=== PATIENT | female | born 1965 | race African-American/Black ===

== ENCOUNTER 2016-07-09 23:57 | Inpatient (IN) | payer MEDICAID ==
[~2016-07-09] VITALS: Ht 167.6 cm; Wt 74.5 kg
[~2016-07-09 23:57] MED LIST: ALDACTONE25 MG PO; ASPIRIN EC325 M1 PO; ASPIRIN325 MG PO; ASPIRIN81 MG PO; COREG 3.1253.125 MG PO; COREG6.25 MG; COZAAR25 MG PO; DEMADEX10 MG; FUROSEMIDE20 MG PO; FUROSEMIDE40 MG PO; K-TAB10 MEQ; K-TAB10 MEQ PO; LANOXIN125 MCG PO; LASIX20 MG PO; LASIX40 MG; LASIX40 MG PO; LISINOPRIL2.5 MG PO; LISINOPRIL5 MG PO; METOLAZONE2.5 MG PO; OXYCODONE HCL5 MG PO; PROAIR HFA8.5 GM; PROAIR HFA8.5 GM INH; PROTONIX40 MG PO; RESTORIL15 MG PO; ZANAFLEX4 MG PO
[2016-07-10 00:28] LABS: BASOPHILS 0.3 % (0.0-2.0); EOSINOPHILS 0.5 % (0-7); HEMATOCRIT 41.5 % (36.0-48.0); HEMOGLOBIN 13.7 g/dL (12-16); IMMATURE GRANULOCYTES 0.3 % (0-5); LYMPHOCYTES 29.9 % (15-50); MCH 30.4 pg (26.0-34.0); MCV 92.2 fL (80.0-100.0); MEAN PLATELET VOLUME 10.9 fL (7.4-10.4); MONOCYTES 4.7 % (2-11); NEUTROPHILS 64.3 % (40-80); PLATELET COUNT 209 10x3/uL (130-400); RDW 15.5 % (11.5-14.5); WBC 6.6 10x3/uL (4.8-10.8)
[2016-07-10 01:00] LABS: ALBUMIN 3.9 g/dL (3.4-5.0); ALKALINE PHOSPHATASE 100 U/L (46-116); ALT (SGPT) 26 U/L (10-68); BILIRUBIN - TOTAL 1.87 mg/dL (0.2-1.3); CALCIUM 9.4 mg/dL (8.5-10.1); CARBON DIOXIDE 25.8 mmol/L (21.0-32.0); CHLORIDE - SERUM 101 mmol/L (98-107); CHOL - HDL RATIO 3.6 ratio (2.3-4.1); CHOLESTEROL, TOTAL 120 mg/dL (0-200); CKMB 2.8 U/L (0.0-3.6); CREATINE KINASE 189 UL (21-215); DIGOXIN 1.11 ng/mL (0.90-2.00); HDL CHOLESTEROL 33 mg/dL (32-96); LDL CHOLESTEROL 80 mg/dL (0-100); LDL-HDL RATIO 2.4 ratio (1.5-3.5); POTASSIUM - SERUM 4.5 mmol/L (3.5-5.1); SODIUM 139 mmol/L (136-145); TRIGLYCERIDE 36 mg/dL (30-200); UREA NITROGEN 20 mg/dL (7-18)
[2016-07-10 01:01] LABS: CALC OSMOLALITY 283 mosm/kg (275-300); GLUCOSE 144 mg/dL (74-106); PRO BNP 1 pg/mL (0-125)
[2016-07-10 01:04] LABS: TROPONIN-I 1.132 ng/mL (0.000-0.060)
[2016-07-10 01:20] LABS: CREATININE - SERUM 1.5 mg/dL (0.6-1.3); PROTEIN - SERUM 8.2 g/dL (6.4-8.2); eGFR NON AFRICAN AMERICAN 39 mL/min (90-120)
[2016-07-10 03:59] VITALS: BP 128/88; Ht 167.6 cm; Wt 74.5 kg
[2016-07-10 04:28] LABS: CKMB 2.4 U/L (0.0-3.6); CREATINE KINASE 180 UL (21-215)
[2016-07-10 04:29] LABS: TROPONIN-I 1.033 ng/mL (0.000-0.060)
--- NOTE | 2016-07-10 07:30 | NUR ---
RECEIVED PT AAOX4 RESP UNLABORED DENIES ANY NEEDS OR DISCOMFORT AT THIS TIME NAD NOTED WILL CONT TO MONITOR
[2016-07-10 07:47] VITALS: BP 110/72
--- NOTE | 2016-07-10 09:25 | NUR ---
RATIONALE FOR SCD'S EXPLAINED. REFUSED SCD'S AT THIS TIME
[2016-07-10 09:45] LABS: CKMB 2.7 U/L (0.0-3.6); CREATINE KINASE 151 UL (21-215)
[2016-07-10 09:48] LABS: TROPONIN-I 1.158 ng/mL (0.000-0.060)
[2016-07-10 11:10] VITALS: BP 104/71
[2016-07-10] MEDS ORDERED: BENTYL 20 MG TA20 MG PO (15:24)
[2016-07-10 15:26] LABS: CKMB 2.2 U/L (0.0-3.6); CREATINE KINASE 179 UL (21-215)
[2016-07-10 15:30] LABS: TROPONIN-I 1.216 ng/mL (0.000-0.060)
[2016-07-10] MEDS ORDERED: BUMEX 1 MG TAB1 MG PO (15:32)
[2016-07-10] MEDS ORDERED: METOLAZONE5 MG (15:32)
[2016-07-10 16:27] VITALS: BP 101/56
--- NOTE | 2016-07-10 19:20 | NUR ---
INITIAL ROUNDS MADE. PT SITTING UP IN BED WATCHING TV. PT DENIES NEEDS OR C/O AT THIS TIME. CALL LIGHT IN REACH. WILL CONT TO MONITOR.
[2016-07-10 20:00] VITALS: BP 90/53
[2016-07-11] VITALS: BP 103/72
--- NOTE | 2016-07-11 00:30 | NUR ---
STAFF INTERNIST OFFICE BASED ONLY AT BEDSIDE FOR VS. NEEDS ADDRESSED. CALL LIGHT IN REACH. WILL CONT TO MONITOR.
--- NOTE | 2016-07-11 02:56 | NUR ---
SITTING UP IN BED WATCHING TV. NO NEEDS VOICED AT THIS TIME. C/O LEG CRAMPING REQUESTING ZANAFLEX AND NORCO SOON POSSIBLE.
[2016-07-11 04:00] VITALS: BP 120/73
[2016-07-11 05:46] LABS: BASOPHILS 0.4 % (0.0-2.0); EOSINOPHILS 0.7 % (0-7); HEMATOCRIT 45.7 % (36.0-48.0); HEMOGLOBIN 15.4 g/dL (12-16); IMMATURE GRANULOCYTES 0.3 % (0-5); LYMPHOCYTES 16.4 % (15-50); MCH 30.2 pg (26.0-34.0); MCHC 33.7 g/dL (31.0-37.0); MEAN PLATELET VOLUME 11.4 fL (7.4-10.4); MONOCYTES 9.6 % (2-11); NEUTROPHILS 72.6 % (40-80); PLATELET COUNT 215 10x3/uL (130-400); RDW 15.3 % (11.5-14.5); WBC 7.2 10x3/uL (4.8-10.8)
[2016-07-11 05:57] LABS: MCV 89.6 fL (80.0-100.0)
[2016-07-11 06:23] LABS: ALBUMIN 4.2 g/dL (3.4-5.0); ANION GAP 18.8 mmol/L (8-16); BILIRUBIN - TOTAL 1.95 mg/dL (0.2-1.3); CARBON DIOXIDE 28.3 mmol/L (21.0-32.0); POTASSIUM - SERUM 4.1 mmol/L (3.5-5.1); PROTEIN - SERUM 8.7 g/dL (6.4-8.2)
[2016-07-11 06:24] LABS: CREATININE - SERUM 1.1 mg/dL (0.6-1.3)
--- NOTE | 2016-07-11 07:22 | NUR ---
RECEIVED PT IN ROOM STANDING C/O GENERALIZED CRAMPING 02/27 NORCO 1 GIVEN PO FOR C/O CRAMPING WILL CONTINUE TO MONITOR PT REFUSING TO WEAR SCDs
[2016-07-11 07:32] VITALS: BP 83/48
--- NOTE | 2016-07-11 08:22 | NUR ---
DOBUTAMINE AND BUMEX DRIPS STOPPED AT THIS TIME PER AMBERLY HEMPHILL ORDER
--- NOTE | 2016-07-11 11:15 | NUR ---
Patient Name: GAURAV RAYA Admission Status: ER Accout number: [id number] Admission Date: 07-10-2016 : 1965 Admission Diagnosis:ACUTE ON CHRONIC SYSTOLIC (CONGESTIVE) HEART FAILURE Attending: VIVI Current LOS: 1 Anticipated DC Date: 07-11-2016 Planned Disposition: Home Health Service Primary Insurance: [employer]IONS KARL PLANNED EXTERNAL PROVIDER: [facility] Discharge Planning Comments: * Is the patient Alert and Oriented? Yes 0 * How many steps to enter\exit or inside your home? 5 0 * PCP DR. CHISHOLM 0 * Pharmacy [facility] 0 * Preadmission Environment Home with Family 0 * ADLs Independent 0 * Equipment None 0 * Other Equipment NO MEDICAL EQUIPMENT PROVIDER PREFERENCE 0 * List name and contact numbers for known caregivers / representatives who currently or will assist patient after discharge: ZAYDA LUCIA CARINA, 0 * Community resources currently utilized Home Health 0 * Please name any agencies selected above. [facility], 0 * Additional services required to return to the preadmission environment? No 0 * Can the patient safely return to the preadmission environment? Yes 0 * Has this patient been hospitalized within the prior 30 days at any hospital? No 0 CM MET WITH PT IN ROOM TO DISCUSS DISCHARGE PLANNING AND NEEDS. PT REPORTS LIVING AT HOME INDEPENDENTLY, PT'S ADULT DAUGHTER LIVES WITH HER. PT HAS NO MEDICAL EQUIPMENT. PT DID CALL HOME HEALTH AFTER HER LAST VISIT AND HAS BEEN RECEIVING HOME HEALTH PRIOR TO THIS ADMISSION WITH [facility]. CM DISCUSSED AVAILABILITY OF HOME HEALTH, REHAB SERVICES AND MEDICAL EQUIPMENT. PT DENIES REHAB AND MEDICAL EQUIPMENT NEEDS, BUT WOULD LIKE HOME HEALTH TO CONTINUE; PT REPORTS HER DAUGHTER WILL PICK HER UP FOR DISCHARGE HOME. IMPORTANT MESSAGE FROM MEDICARE PROVIDED AND EXPLAINED. CM CALLED [facility], , SPOKE TO YULIA WHO VERIFIED PT IS ACTIVE AND ON HOLD FOR HOME HEALTH SERVICES. FOR HOME HEALTH RESUMPTION AT HOSPITAL DISCHARGE, NOTIFY [facility] AT [phone]; FAX DISCHARGE INFORMATION TO [facility] AT [phone]. CM TO FOLLOW AND ASSIST NEEDED. Hydraulic Boom Operator: Alex Fernando
[2016-07-11 11:34] VITALS: BP 89/53
--- NOTE | 2016-07-11 13:04 | NUR ---
Patient Name: GAURAV RAYA Encounter No: [id number] : 1965 Primary Insurance: [employer] OPTIONS KARL Anticipated DC Date: 07-11-2016 Planned Disposition: Home Health Service External Planned Provider: [facility] DCP follow-up note: CM RECEIVED DISCHARGE ORDER, CALLED AND NOTIFYIED JAMES AT [facility] AT [phone]; FAXED DISCHARGE INFORMATION TO [facility] AT [phone]. Rope Tier: Alex Fernando
[2016-07-11 15:33] VITALS: BP 90/60
--- NOTE | 2016-07-11 17:00 | NUR ---
REVIEWED DISCHARGE INSTRUCTIONS PT STATES UNDERSTANDING COPY GIVEN DCD SALINE LOCK TO RAC WITH 20 GA IV CATH INTACT NO REDNESS OR EDEMA PT DISCHARGED HOME LEFT UNIT VIA W/C IN STABLE CONDITION WITH ALL PERSONAL BELONGINGS
--- NOTE | 2016-07-14 08:47 | DS ---
PATIENT:GAURAV HOWARD :63 MEDICAL RECORD: [id number] DISCHARGE SUMMARY ADMISSION DATE: 07/10/16 DISCHARGE DATE: 07/11/16 DISCHARGE DIAGNOSES: 1. Congestive heart failure, chronic systolic dysfunction. 2. Nonischemic cardiomyopathy. HOSPITAL COURSE: Mrs. Howard presents with heart failure symptomatology. She has a nonischemic cardiomyopathy, ejection fraction 10%. She did have an elevated troponin, but this is secondary to demand ischemia. No repeat cardiac catheterization was necessary. She was placed on Dobutrex as well as Bumex, both IV drips. She had greater than 4 liters output and her heart failure symptomatology cleared. She was discharged home to follow up with [facility] in 1 month. TRANSINT:[id number] Voice Confirmation ID: [id number] DOCUMENT ID: [id number] KARIS THOMAS MD at 0847 CC: [id number] DICTATION DATE: 07/11/16 0918 PIT CLERK: 07/12/16 0129 DIS IN 07/11/16 [id number] [place] [address]
== END 2016-07-11 17:00 | disposition home or self-care (01) | DRG 292 ==
LOC: D.ER 23:57 → D.M2 07-10 03:07 → OBSVTIME 07-10 03:28 → D.M2 07-10 10:08
PROVIDERS: Family Medicine; ADMIT Family Medicine
DX: I11.0 Hypertensive heart disease with heart failure (principal); N17.9 Acute kidney failure, unspecified; I24.8 Other forms of acute ischemic heart disease; I50.23 Acute on chronic systolic (congestive) heart failure; R79.89 Other specified abnormal findings of blood chemistry; Z95.810 Presence of automatic (implantable) cardiac defibrillator; I42.9 Cardiomyopathy, unspecified

== ENCOUNTER 2016-08-10 15:55 | Observation (INO) | payer MEDICAID ==
[~2016-08-10] VITALS: Ht 167.6 cm; Wt 80.6 kg
[~2016-08-10 15:55] MED LIST changes: +BENTYL 20 MG TA20 MG PO; +BUMEX 1 MG TAB1 MG PO; +METOLAZONE5 MG
[2016-08-10 17:26] LABS: BASOPHILS 0.1 % (0.0-2.0); EOSINOPHILS 0.6 % (0-7); HEMATOCRIT 39.3 % (36.0-48.0); IMMATURE GRANULOCYTES 0.1 % (0-5); MCH 30.4 pg (26.0-34.0); MCHC 33.1 g/dL (31.0-37.0); MEAN PLATELET VOLUME 11.1 fL (7.4-10.4); NEUTROPHILS 70.2 % (40-80); PLATELET COUNT 191 10x3/uL (130-400); RBC 4.27 10x6/uL (4.00-5.40); WBC 6.9 10x3/uL (4.8-10.8)
[2016-08-10 17:46] LABS: ALBUMIN 3.6 g/dL (3.4-5.0); ANION GAP 14.5 mmol/L (8-16); BILIRUBIN - TOTAL 2.36 mg/dL (0.2-1.3); CALCIUM 9.4 mg/dL (8.5-10.1); CARBON DIOXIDE 25.9 mmol/L (21.0-32.0); CREATININE - SERUM 1.2 mg/dL (0.6-1.3); POTASSIUM - SERUM 4.4 mmol/L (3.5-5.1); PROTEIN - SERUM 7.7 g/dL (6.4-8.2)
[2016-08-10 18:06] LABS: TROPONIN-I 1.465 ng/mL (0.000-0.060)
--- NOTE | 2016-08-10 20:12 | NUR ---
REPORT RECEIVED FROM HAO DEL ANGEL.
--- NOTE | 2016-08-10 21:09 | NUR ---
ARRIVED TO FLOOR VIA STRETCHER, ACCOMPANIED BY HOSPITAL STAFF. PLACED ON TELEMETRY 99PACED. ORIENTED TO UNIT, CALL LIGHT IN REACH. PLAN OF CARE DISCUSSED. WILL CONTINUE TO MONITOR. SEE NURSE ASSESSMENT.
--- NOTE | 2016-08-10 22:47 | NUR ---
ADITI ISRAEL PAGED ABOUT HOME MEDS, AWAITING CALL BACK.
[2016-08-11] VITALS: BP 100/64
--- NOTE | 2016-08-11 02:19 | NUR ---
LYING IN BED, CALL LIGHT IN REACH. WILL CONTINUE WITH PLAN OF CARE. [address]
[2016-08-11 04:00] VITALS: BP 113/70
[2016-08-11 08:04] VITALS: BP 99/73
--- NOTE | 2016-08-11 09:42 | NUR ---
TELEMETRY SR. IV PATENT. CALL LIGHT IN REACH. WILL CONT. PLAN OF CARE.
[2016-08-11 12:06] VITALS: Ht 167.6 cm; Wt 80.6 kg
[2016-08-11 13:01] VITALS: BP 111/78
[2016-08-11 16:32] VITALS: BP 104/80
--- NOTE | 2016-08-11 19:00 | NUR ---
RECEIVED REPORT AND ASSUMED PT CARE FROM DAY SHIFT NURSE @ THIS TIME.
[2016-08-11 21:18] VITALS: BP 130/85
[2016-08-12 00:23] VITALS: BP 89/55
[2016-08-12 04:25] VITALS: BP 98/65
[2016-08-12 05:49] LABS: BASOPHILS 0.3 % (0.0-2.0); EOSINOPHILS 1.4 % (0-7); HEMATOCRIT 40.8 % (36.0-48.0); HEMOGLOBIN 13.3 g/dL (12-16); IMMATURE GRANULOCYTES 0.2 % (0-5); LYMPHOCYTES 32.5 % (15-50); MCH 29.8 pg (26.0-34.0); MCHC 32.6 g/dL (31.0-37.0); MCV 91.5 fL (80.0-100.0); MEAN PLATELET VOLUME 11.1 fL (7.4-10.4); MONOCYTES 5.9 % (2-11); NEUTROPHILS 59.7 % (40-80); PLATELET COUNT 190 10x3/uL (130-400); RBC 4.46 10x6/uL (4.00-5.40); RDW 17.1 % (11.5-14.5); WBC 5.9 10x3/uL (4.8-10.8)
[2016-08-12 06:12] LABS: ALBUMIN 3.2 g/dL (3.4-5.0); ANION GAP 10.8 mmol/L (8-16); BILIRUBIN - TOTAL 1.88 mg/dL (0.2-1.3); CALCIUM 8.7 mg/dL (8.5-10.1); CARBON DIOXIDE 30.5 mmol/L (21.0-32.0); CREATININE - SERUM 1.2 mg/dL (0.6-1.3); POTASSIUM - SERUM 4.3 mmol/L (3.5-5.1); PROTEIN - SERUM 7.3 g/dL (6.4-8.2)
[2016-08-12 07:00] VITALS: BP 90/72
--- NOTE | 2016-08-12 07:30 | NUR ---
RECEIVED PT IN BED AAOX 4 RESP UNLABORED DENIES ANY NEEDS OR DISCOMFORT NAD NOTED
[2016-08-12 12:00] VITALS: BP 93/49
[2016-08-12 16:00] VITALS: BP 95/72
--- NOTE | 2016-08-12 19:15 | NUR ---
INITIAL ROUNDS MADE. PT SITTING UP IN BED WATCHING TV. DENIES NEEDS OR C/O AT THIS TIME. CALL LIGHT IN REACH.WILL CONT TO MONITOR.
[2016-08-12 20:47] VITALS: BP 104/76
--- NOTE | 2016-08-12 23:26 | NUR ---
BUSINESS SYSTEMS DEVELOPER AT BEDSIDE FOR VS. NEEDS ADDRESSED, CALL LIGHT IN REACH. WILL CONT TO MONITOR.
[2016-08-13 00:44] VITALS: BP 106/68
[2016-08-13 04:39] VITALS: BP 76/47
--- NOTE | 2016-08-13 05:16 | NUR ---
NO CHANGES IN ASSESSMENT. CALL LIGHT IN REACH. DENIES NEEDS. CONT TO MONITOR.
[2016-08-13 05:50] LABS: BASOPHILS 0.3 % (0.0-2.0); EOSINOPHILS 1.4 % (0-7); HEMATOCRIT 40.7 % (36.0-48.0); HEMOGLOBIN 13.3 g/dL (12-16); IMMATURE GRANULOCYTES 0.3 % (0-5); LYMPHOCYTES 25.5 % (15-50); MCH 30.2 pg (26.0-34.0); MCHC 32.7 g/dL (31.0-37.0); MCV 92.3 fL (80.0-100.0); MEAN PLATELET VOLUME 10.7 fL (7.4-10.4); MONOCYTES 6.5 % (2-11); PLATELET COUNT 203 10x3/uL (130-400); RBC 4.41 10x6/uL (4.00-5.40); RDW 16.9 % (11.5-14.5); WBC 6.9 10x3/uL (4.8-10.8)
[2016-08-13 06:15] LABS: ALBUMIN 3.2 g/dL (3.4-5.0); ANION GAP 11.9 mmol/L (8-16); BILIRUBIN - TOTAL 1.5 mg/dL (0.2-1.3); CALCIUM 8.9 mg/dL (8.5-10.1); CARBON DIOXIDE 29.6 mmol/L (21.0-32.0); CREATININE - SERUM 1.4 mg/dL (0.6-1.3); POTASSIUM - SERUM 4.5 mmol/L (3.5-5.1); PROTEIN - SERUM 7.5 g/dL (6.4-8.2)
--- NOTE | 2016-08-13 07:33 | NUR ---
ASSESSMENT COMPLETED.TELEMERTY SHOWS SR WITH A HEARTRATE OF 75. O2 AT 2 L/M PER NC. DENIES ANY NEEDS. SR UP WITH CALL LIGHT IN REAC. WILL MONITOR
--- NOTE | 2016-08-13 12:34 | NUR ---
EATING LUNCH DENIES ANY NEEDS OR DISCOMFORT AT THIS TIME
[2016-08-13 13:01] VITALS: BP 92/71
[2016-08-13 16:39] VITALS: BP 99/67
--- NOTE | 2016-08-13 17:52 | NUR ---
LYING QUIETLY WITH HOB UP. DENIES ANY NEEDS. TELEMERTY SHOWS SR. CALL LIGHT IN REACH
--- NOTE | 2016-08-13 19:39 | NUR ---
RESUMED CARE OF PT, LYING IN BED RESPIRATIONS EVEN AND UNLABORED ON ROOM AIR. 96 SR ON TELEMETRY. RIGHT AC SALINE LOCKED. REQUESTS PAIN MEDICATION FOR ABDOMINAL PAIN. CALL LIGHT IN REACH. WILL CONTINUE TO MONITOR. SEE NURSE ASSESSMENT.
[2016-08-13 20:00] VITALS: BP 116/76
[2016-08-14 04:00] VITALS: BP 114/71
[2016-08-14 05:42] LABS: BASOPHILS 0.1 % (0.0-2.0); EOSINOPHILS 0.4 % (0-7); HEMATOCRIT 39.8 % (36.0-48.0); HEMOGLOBIN 12.9 g/dL (12-16); IMMATURE GRANULOCYTES 0.1 % (0-5); LYMPHOCYTES 24.7 % (15-50); MCH 29.7 pg (26.0-34.0); MCHC 32.4 g/dL (31.0-37.0); MCV 91.5 fL (80.0-100.0); MEAN PLATELET VOLUME 10.7 fL (7.4-10.4); MONOCYTES 7.3 % (2-11); NEUTROPHILS 67.4 % (40-80); PLATELET COUNT 215 10x3/uL (130-400); RBC 4.35 10x6/uL (4.00-5.40); RDW 16.8 % (11.5-14.5); WBC 6.7 10x3/uL (4.8-10.8)
[2016-08-14 06:03] LABS: ALBUMIN 3.4 g/dL (3.4-5.0); ANION GAP 11.6 mmol/L (8-16); BILIRUBIN - TOTAL 2.3 mg/dL (0.2-1.3); CALCIUM 9.4 mg/dL (8.5-10.1); CARBON DIOXIDE 27.8 mmol/L (21.0-32.0); CREATININE - SERUM 1.2 mg/dL (0.6-1.3); POTASSIUM - SERUM 4.4 mmol/L (3.5-5.1); PROTEIN - SERUM 7.5 g/dL (6.4-8.2)
[2016-08-14 08:15] VITALS: BP 131/86
--- NOTE | 2016-08-14 09:41 | NUR ---
TELEMETRY SR. WILL MONITOR NEEDS.
[2016-08-14 11:36] VITALS: BP 114/81
[2016-08-14] MEDS ORDERED: Levaquin PO (13:08)
[2016-08-14] MEDS ORDERED: FLORAJEN3 CAPS460 MG PO (13:09)
[2016-08-14] MEDS ORDERED: MUCINEX600 MG PO (13:09)
[2016-08-14] MEDS ORDERED: LEVAQUIN500 MG PO (13:14)
[2016-08-14 15:32] VITALS: BP 106/76
--- NOTE | 2016-08-14 16:14 | NUR ---
IV AND TELEMETRY DCD. DC PLANS GIVEN. UNDERSTANDING VOICED. ESCORTED TO CAR BY W/C.
--- NOTE | 2016-08-16 08:43 | CN ---
PATIENT NAME:GAURAV RAYA MEDICAL RECORD: [id number] : [birth year] LOCATION:D.[place] D.2119 ADMIT DATE: 08/10/16 ACCOUNT: [id number] CONSULTING PHYSICIAN: RUBEN ROGER MD REFERRING PHYSICIAN: LIBBY MASCORRO MD DATE OF CONSULTATION: 08/11/2016 HISTORY OF PRESENT ILLNESS: A 51-year-old lady with a history of nonischemic cardiomyopathy. She has a history of ICD placement, chronic elevated troponin, admitted with generalized fatigue, cough, elevated troponin although this is chronic in nature. BNP is elevated above her usual. She had a normal coronary in the past. We are asked to see her concerning her cardiovascular status. PAST MEDICAL HISTORY: Includes: 1. History of cardiomyopathy. 2. Status post 3 lead ICD. ALLERGIES: PENICILLIN. MEDICATIONS: Typically include albuterol 2 puffs q.6, Bentyl 20 b.i.d., Zanaflex 4 mg t.i.d., digoxin 0.125 q. day, losartan 25 b.i.d., spironolactone 25 q. day, Bumex 1 mg p.o. q. day, Lasix 20 b.i.d., potassium supplementation, Protonix 40 q. day. SOCIAL HISTORY: She is a nonsmoker, nondrinker. She takes care of her ADLs. No set exercise program. REVIEW OF SYSTEMS: The patient reports easy bruising but reports no swollen glands. The patient reports no fever, no night sweats, no significant weight gain, no significant weight loss. No significant exercise tolerance. The patient reports no dry eyes, no irritation, no vision change. Patient reports no difficulty hearing and no ear pain. Patient reports no frequent nose bleeds or nose and sinus problems. Patient reports on arm pain on exertion. No shortness of breath while lying down. No history of heart murmur. Patient reports no cough, no wheezing or coughing up blood. Patient reports no abdominal pain, no vomiting. Normal appetite. No diarrhea and not vomiting blood. No nausea and no constipation. Patient reports no incontinence. No difficulty urinating. No hematuria. No increased frequency. Patient reports no muscle aches. No weakness, no arthralgias, no back pain. No swelling of the extremities. Patient reports no abnormal mole, no jaundice, no rashes. Reports no loss of consciousness. No weakness and no numbness. No seizures, dizziness, or headaches. The patient reports no depression, no sleep disturbance, feeling safe in a relationship and no alcohol abuse. Patient reports on fatigue. Reports no runny nose or sinus pressure. No itching, no hives, and no frequent sneezing. PHYSICAL EXAMINATION: GENERAL: Pleasant gentleman appears in no acute distress. VITAL SIGNS: Blood pressure 99/73, pulse is 92 and regular. HEENT: Normocephalic and atraumatic. NECK: No JVD or bruit. HEART: Regular. LUNGS: [place] are clear. ABDOMEN: Soft and nontender. Pulses 2+. There is no edema. CONSULT REPORT [id number] GAURAV RAYA DIAGNOSTIC DATA: ECG without acute change. IMPRESSION: Volume overload. I agree with current management. Reports occasional orthopnea it might benefit from overnight O2 saturations to see if she qualifies for home O2. Further recommendations based on above. TRANSINT:[id number] Voice Confirmation ID: [id number] DOCUMENT ID: [id number] RUBEN ROGER MD at 0843 CC: [id number] DICTATION DATE: 08/11/16 0836 ATHLETIC TURF WORKER: 08/11/16 1119 DIS IN 08/14/16 [facility] [address] [place] [address]
== END 2016-08-14 16:15 | disposition home or self-care (01) ==
LOC: D.ER 15:55 → D.M2 19:40 → OBSVTIME 19:40 → D.M2 08-14 16:15
PROVIDERS: Emergency Medicine; ADMIT Family Medicine
DX: J20.9 Acute bronchitis, unspecified (principal); I11.0 Hypertensive heart disease with heart failure; I50.33 Acute on chronic diastolic (congestive) heart failure; Z95.810 Presence of automatic (implantable) cardiac defibrillator; G35 Multiple sclerosis; I42.9 Cardiomyopathy, unspecified

== ENCOUNTER 2016-09-21 03:02 | Emergency (ER) | payer MEDICAID ==
[2016-08-11 12:06] VITALS: BMI 28.2
[~2016-09-21 03:02] MED LIST changes: +FLORAJEN3 CAPS460 MG PO; +LEVAQUIN500 MG PO; +Levaquin PO; +MUCINEX600 MG PO
== END 2016-09-21 03:33 | disposition home or self-care (01) ==
LOC: D.ER 03:02
DX: R60.0 Localized edema (principal); I50.9 Heart failure, unspecified; I10 Essential (primary) hypertension

== ENCOUNTER 2016-10-12 22:20 | Inpatient (IN) | payer MEDICAID ==
[~2016-10-12] VITALS: Ht 167.6 cm; Wt 79.0 kg
--- NOTE | 2016-10-12 22:29 | NUR ---
PT RECEIEVED TO ROOM 2126 VIA WHEELCHAIR ACCOMPANIED BY HOSPITAL STAFF AT THIS TIME.
[2016-10-12] MEDS ORDERED: ZANAFLEX2 M1 PO (22:51)
--- NOTE | 2016-10-12 23:15 | NUR ---
PT ARRIVES VIA TO ROOM 2126. DIRECT ADMISSION FROM DR MASCORRO'S OFFICE. WRITTEN ORDERS COME WITH PT AND ENTERED INTO CPOE. MEDICATIONS RECONCILED AT THE BEDSIDE. ADMISSION ASSESSMENT AND HISTORY COMPLETED. EKG DONE UPON ARRIVAL. LEFT FOREARM SITED WITH 20 GAUGE X 1 STICK AND SALINE LOCKED. PT DOES RELATE HAVING BEEN PUT ON A NEW "BLOOD PRESSURE PILL BY DR GIBBS". PT IS UNABLE TO REMEMBER THE NAME OF THE MEDICATION. STATES SHE HAS BEEN ITCHING AND HAVING A RASH ON HER ARMS AND CHEST. VSS, AFEBRILE. UNIT ROUTINES AND PROTOCOLS DISCUSSED WITH PT, VEERBALIZES UNDERSTANDING. CALL LIGHT PLACED WITHIN REACH. WILL CONT TO MONITOR.
[2016-10-12 23:38] VITALS: BP 114/80; Ht 167.6 cm; Wt 79.0 kg
--- NOTE | 2016-10-12 23:57 | NUR ---
ADMINISTERED LASIX IVP PER ORDERS AT THIS TIME. PT DENIES NEEDS. BED LOW. PHONE AND CALL LIGHT IN REACH. SRX2.
[2016-10-13] VITALS: BP 114/80
--- NOTE | 2016-10-13 | NUR ---
CALL TO [employer] ISRAEL [employer] FARM EQUIPMENT ASSEMBLER. PT HAS A COMPLAINT OF HEADACHE AND REQUESTS BENADRYL FOR ITCHING. AWAITING RETURN CALL
--- NOTE | 2016-10-13 00:15 | NUR ---
GEGE LI RETURNS CALL. ORDERS RECEIVED FOR TRAMADOL 50 MG PO Q6H PRN PAIN AND BENADRYL 25 MG PO Q4H PRN ITCHING. ALSO ORDERS TO CONSULT DR GIBBS IN AM FOR PT'S CHF. ORDERS ENTERED INTO CPOE.
--- NOTE | 2016-10-13 00:25 | NUR ---
TRAMADOL GIVEN PO AT THIS TIME FOR PAIN PT RATES 10/28. BENADRYL ALSO GIVEN AT THIS TIME FOR PT C/O ITCHING. DENIES NEEDS. BED LOW. PHONE AND CALL LIGHT IN REACH. SRX2.
[2016-10-13 02:24] LABS: CKMB 2.3 U/L (0.0-3.6); CREATINE KINASE 301 UL (21-215); DIGOXIN 0.72 ng/mL (0.90-2.00)
--- NOTE | 2016-10-13 02:46 | NUR ---
PT RESTING QUIETLY AT THIS TIME WITH EYES CLOSED. AROUSED EASILY. DENIES NEEDS. BED LOW. PHONE AND CALL LIGHT IN REACH. SRX2.
[2016-10-13 04:00] VITALS: BP 107/59
--- NOTE | 2016-10-13 04:22 | NUR ---
ADMINISTERED BENADRYL PO PER ORDERS FOR PT C/O ITCHING. PT REQUESTS ORANGE SHERBET AND CUP OF ICE AT THIS TIME. DENIES OTHER NEEDS. BED LOW. PHONE AND CALL LIGHT IN REACH. SRX2.
[2016-10-13 06:21] LABS: ALBUMIN 3.5 g/dL (3.4-5.0); ANION GAP 15.6 mmol/L (8-16); BILIRUBIN - TOTAL 2.1 mg/dL (0.2-1.3); CALCIUM 9.2 mg/dL (8.5-10.1); CARBON DIOXIDE 25.4 mmol/L (21.0-32.0); CREATININE - SERUM 1.2 mg/dL (0.6-1.3); PROTEIN - SERUM 8.1 g/dL (6.4-8.2)
[2016-10-13 06:24] LABS: HEMATOCRIT 41.6 % (36.0-48.0); HEMOGLOBIN 13.5 g/dL (12-16); LYMPHOCYTES 30.2 % (15-50); MCH 28.8 pg (26.0-34.0); MCHC 32.5 g/dL (31.0-37.0); MCV 88.7 fL (80.0-100.0); MEAN PLATELET VOLUME 10.8 fL (7.4-10.4); NEUTROPHILS 67.2 % (40-80); PLATELET COUNT 202 10x3/uL (130-400); RBC 4.69 10x6/uL (4.00-5.40); RDW 18.6 % (11.5-14.5); WBC 6.6 10x3/uL (4.8-10.8)
--- NOTE | 2016-10-13 07:30 | NUR ---
RECEIVED PT IN BED EYES CLOSED RESP UNLABORED NAD NOTED
[2016-10-13 07:53] LABS: CKMB 2.3 U/L (0.0-3.6); CREATINE KINASE 280 UL (21-215)
[2016-10-13 08:00] VITALS: BP 108/71
[2016-10-13 08:02] LABS: TROPONIN-I 1.523 ng/mL (0.000-0.060)
[2016-10-13 12:14] VITALS: BP 101/61
[2016-10-13 13:51] LABS: CKMB 1.7 U/L (0.0-3.6); CREATINE KINASE 227 UL (21-215)
[2016-10-13 15:43] VITALS: BP 97/69
[2016-10-14] VITALS: BP 88/60
--- NOTE | 2016-10-14 00:06 | NUR ---
1900 SHIFT ASSESSMENT COMPLETE WITH PAIN AND NEEDS DENIED TELEMETRY READING OF SINUS AT 69. IV SALINE LOCK TO THE L/ARM CDI NO BLEEDING NOTED. STRICT I&O IN PLACE WITH 700 CC URINE NOTED TO COLLECTION 2129 PO MEDICATION GIVEN ORAL WITH SIPS OF WATER.
--- NOTE | 2016-10-14 00:54 | NUR ---
SLEEPING QUIETLY WITH EYES CLOSED NO DISTRESS NOTED CALL LIGHT IN REACH
[2016-10-14 04:00] VITALS: BP 77/52
--- NOTE | 2016-10-14 07:57 | NUR ---
ASSESSMENT DONE. DENIES NEEDS.
--- NOTE | 2016-10-14 08:18 | NUR ---
RESTS IN BED WITH EYES COLSED. NO S/S DISCOMFORTS NOTED. CALL LIGHT IN REACH. WILL MONITOR NEEDS.
[2016-10-14 08:54] VITALS: BP 86/60
[2016-10-14 12:48] VITALS: BP 79/55
[2016-10-14] MEDS ORDERED: COZAAR50 MG PO (15:02)
--- NOTE | 2016-10-14 16:31 | NUR ---
DC GIVEN TO PT
--- NOTE | 2016-10-14 17:20 | NUR ---
DC HOME PER PERSONAL CAR
--- NOTE | 2016-10-16 09:15 | EC ---
PATIENT:GAURAV RAYA DATE OF SERVICE: 10/12/16 SEX: F MEDICAL RECORD: [id number] DATE OF : [birth year] LOCATION:D. D.212 AGE OF PATIENT: 51 ADMISSION DATE: 10/12/16 REFERRING PHYSICIAN: INTERPRETING PHYSICIAN: RUBEN ROGER MD ECHOCARDIOGRAM REPORT ECHO CHARGES 4 ECHO COMPLETE CLINICAL DIAGNOSIS: CARDIOMYOPATHY ECHOCARDIOGRAPHIC MEASUREMENTS (adult normal given) AC root (d.<3.7cm) 2.7 LV Septum d (<1.2 cm> 1.0 Valve Excursion 1.9 LV Septum (systole) 1.6 Left Atria (s.<4.0cm> 4.3 LVPW d(<1.2cm) 0.9 RV (d.<2.3cm) 4.4 LVPW (sytole) 1.3 LV diastole(<5.6CM) 7.4 MV E-F(>70mm/sec) LV systole 6.2 LVOT Diameter 1.7 MV exc.(>10mm) Est.ejection fraction (50-75%) Pericardial Effusion N DOPPLER: LVIT A 38.0 E 86.0 LA RVSP 39.0 LVOT 36.0 AOP1/2T Asc. Ao 81.0 RVOT 45.0 RA PA 46.0 AV Gradient Peak 2.6 AV Mean 1.4 AV Area 0.9 MV Gradient Peak 3.8 MV Mean 1.4 MV Area COMMENTS: Floor Care Technician: Lindsay LEWOE [employer] Internet Sales Consultant:2 Dr. Nelson TAPE# PACS DATE OF SERVICE: 10/15/2016 Adequate 2D echo, color flow, spectral Doppler, and M-mode. No LVH. LV internal dimensions are dilated at 6.2 cm. LV is globally hypokinetic with reduced EF, estimated EF of 15% to 20%. Aortic valve sclerosis without stenosis by Doppler interrogation. The left atrium is mildly dilated at 4.3 cm. Mitral valve is thickened. Moderate to severe MR. Right-sided chamber is grossly normal. Severe TR. RV systolic pressure is estimated greater than or equal to 39 mmHg via the continuity equation. ECHOCARDIOGRAM REPORT [id number] GAURAV RAYA LYDIA TRANSINT:[id number] Voice Confirmation ID: [id number] DOCUMENT ID: [id number] RUBEN ROGER MD at 0915 CC: [id number] DICTATION DATE: 10/15/16 0936 POWER PLANT MANAGER: 10/15/16 1301 DIS IN 10/14/16 [facility] [address] [place] [address]
== END 2016-10-14 17:20 | disposition home or self-care (01) | DRG 293 ==
LOC: D.M2 22:20
PROVIDERS: ADMIT Family Medicine
DX: I11.0 Hypertensive heart disease with heart failure (principal); I42.9 Cardiomyopathy, unspecified; I50.21 Acute systolic (congestive) heart failure; G35 Multiple sclerosis; Z95.0 Presence of cardiac pacemaker; K21.9 Gastro-esophageal reflux disease without esophagitis; L50.9 Urticaria, unspecified; L50.0 Allergic urticaria; T46.5X5A Adverse effect of other antihypertensive drugs, initial encounter

== ENCOUNTER 2016-10-28 01:28 | Inpatient (IN) | payer MEDICAID ==
[~2016-10-28] VITALS: Ht 166.4 cm; Wt 86.4 kg
[~2016-10-28 01:28] MED LIST changes: +COZAAR50 MG PO; +ZANAFLEX2 M1 PO
[2016-10-28 02:02] LABS: BASOPHILS 0.3 % (0-2); EOSINOPHILS 0.5 % (0-7); HEMATOCRIT 40.2 % (36.0-48.0); HEMOGLOBIN 12.9 g/dL (12-16); IMMATURE GRANULOCYTES 0.2 % (0-5); LYMPHOCYTES 20.6 % (15-50); MCH 28.4 pg (26.0-34.0); MCHC 32.1 g/dL (31.0-37.0); MCV 88.4 fL (80.0-100.0); MEAN PLATELET VOLUME 10.5 fL (7.4-10.4); MONOCYTES 7.8 % (2-11); NEUTROPHILS 70.6 % (40-80); PLATELET COUNT 231 10x3/uL (130-400); RBC 4.55 10x6/uL (4.00-5.40); RDW 18.1 % (11.5-14.5); WBC 5.9 10x3/uL (4.8-10.8)
[2016-10-28 02:13] LABS: ALBUMIN 3.6 g/dL (3.4-5.0); BILIRUBIN - TOTAL 2.91 mg/dL (0.2-1.3); CALCIUM 9.4 mg/dL (8.5-10.1); CARBON DIOXIDE 26.2 mmol/L (21.0-32.0); CREATININE - SERUM 1.4 mg/dL (0.6-1.3); POTASSIUM - SERUM 4.2 mmol/L (3.5-5.1)
[2016-10-28 02:15] LABS: DIGOXIN 0.6 ng/mL (0.90-2.00)
[2016-10-28 03:19] LABS: APPEARANCE CLOUDY (CLEAR); BILIRUBIN 1+ (NEGATIVE); COLOR DK YELLOW (YELLOW); GLUCOSE NEGATIVE (NEGATIVE); KETONE NEGATIVE (NEGATIVE); LEUKOCYTE ESTERASE TRACE (NEGATIVE); NITRITE NEGATIVE (NEGATIVE); PROTEIN 1+ mg/dL (NEGATIVE)
[2016-10-28 03:24] LABS: AMORPHOUS SEDIMENT >1+ /lpf (NONE SEEN); BACTERIA MODERATE /hpf (NONE SEEN); GRANULAR CAST OCC /lpf (NONE SEEN); HYALINE CAST OCC /lpf (NONE SEEN); WHITE CELLS - URINE 0-5 /hpf (0-5)
[2016-10-28] MEDS ORDERED: LIBRAX CAPSULE1 CAP PO (13:00)
[2016-10-28 13:01] VITALS: BP 117/78; Ht 166.4 cm; Wt 86.4 kg
--- NOTE | 2016-10-28 13:13 | NUR ---
PT ARRIVED VIA STRETCHER PT TRANSFERRED HERSELF ONTO BED IV TO RIGHT HAND PATENT AND INTACT. HEART RATE OF 98 BOUNDING AT THIS TIME. TELEMETRY AND EKG ORDERED. BED AT LOWEST SETTING CALL LIGHT WITHIN REACH WILL CONTINUE TO MONITOR SRX2
[2016-10-28 18:49] VITALS: BP 118/64
--- NOTE | 2016-10-28 19:30 | NUR ---
PT LYING IN BED AWAKE VISITING WITH SEVERAL FAMILY MEMBERS, HOB ELEVATED, ASSESSMENT COMPLETED, NO ACUTE DISTRESS NOTED, TELEMETRY IN PLACE, SR'S UP, CL IN REACH, WILL MONITOR
[2016-10-28 20:00] VITALS: BP 107/75
--- NOTE | 2016-10-28 20:38 | NUR ---
PRN ZANAFLEX GIVEN FOR C/O ABD MUSCLE SPASMS ALONG WITH ROUTINE MED, VERITO WELL, DENIES FURTHER NEEDS, FALL PRECAUTIONS IN PLACE, CL IN REACH
--- NOTE | 2016-10-28 21:58 | NUR ---
LYING IN BED WATCHING TV, DENIES NEEDS, SR'S UP, CL IN REACH
--- NOTE | 2016-10-28 23:42 | NUR ---
RESTING WITH EYES CLOSED, NO ACUTE DISTRESS NOTED, SAFETY MEASURES IN PLACE, CL IN REACH
[2016-10-29] VITALS: BP 97/60
[2016-10-29 04:00] VITALS: BP 96/62
[2016-10-29 05:30] LABS: BASOPHILS 0.2 % (0-2); EOSINOPHILS 0.2 % (0-7); HEMATOCRIT 37.8 % (36.0-48.0); HEMOGLOBIN 12.3 g/dL (12-16); IMMATURE GRANULOCYTES 0.5 % (0-5); LYMPHOCYTES 21.2 % (15-50); MCH 28.7 pg (26.0-34.0); MCHC 32.5 g/dL (31.0-37.0); MCV 88.1 fL (80.0-100.0); MEAN PLATELET VOLUME 11.1 fL (7.4-10.4); MONOCYTES 7.4 % (2-11); NEUTROPHILS 70.5 % (40-80); RBC 4.29 10x6/uL (4.00-5.40); RDW 18.1 % (11.5-14.5); WBC 5.8 10x3/uL (4.8-10.8)
[2016-10-29 05:31] LABS: PLATELET COUNT 179 10x3/uL (130-400)
[2016-10-29 05:37] LABS: ALBUMIN 3.2 g/dL (3.4-5.0); BILIRUBIN - TOTAL 3.47 mg/dL (0.2-1.3); CALCIUM 9.3 mg/dL (8.5-10.1); CARBON DIOXIDE 29.8 mmol/L (21.0-32.0); CREATININE - SERUM 1.5 mg/dL (0.6-1.3); PROTEIN - SERUM 7.2 g/dL (6.4-8.2)
[2016-10-29 05:40] LABS: ANION GAP 10.5 mmol/L (8-16); POTASSIUM - SERUM 5.3 mmol/L (3.5-5.1)
[2016-10-29 08:25] VITALS: BP 98/80
--- NOTE | 2016-10-29 10:05 | NUR ---
PATIENT IN LEFT LATERAL POSITION ALERT AND RESTING QUIETLY. NO SIGNS OF DISTRESS NOTED. PRIMARY NURSE ERIKA SANTO PRESENT. SIDE RAILS UP X2. BED IN LOW POSITION. CALL LIGHT IN REACH.
[2016-10-29 12:32] VITALS: BP 99/72
[2016-10-29 15:48] VITALS: BP 98/64
--- NOTE | 2016-10-29 19:36 | NUR ---
LYING IN BED VISITING WITH FAMILY, ASSESSMENT COMPLETED, NO ACUTE DISTRESS NOTED, DENIES PAIN OR NEEDS AT THIS TIME, SR'S UP, CL IN REACH, WILL MONITOR
[2016-10-29 20:00] VITALS: BP 102/72
--- NOTE | 2016-10-29 21:39 | NUR ---
WATCHING TV WITH VISITOR, NO DISTRESS NOTED, DENIES NEEDS, CL IN REACH
--- NOTE | 2016-10-29 23:30 | NUR ---
RESTING WITH EYES CLOSED, NO DISTRESS NOTED, SR'S UP X2, CL IN REACH
[2016-10-30] VITALS: BP 113/69
[2016-10-30 04:00] VITALS: BP 100/69
[2016-10-30 05:27] LABS: BASOPHILS 0.3 % (0-2); EOSINOPHILS 0.5 % (0-7); HEMATOCRIT 39.8 % (36.0-48.0); HEMOGLOBIN 12.9 g/dL (12-16); IMMATURE GRANULOCYTES 0.3 % (0-5); LYMPHOCYTES 18.9 % (15-50); MCH 28.7 pg (26.0-34.0); MCHC 32.4 g/dL (31.0-37.0); MCV 88.6 fL (80.0-100.0); MEAN PLATELET VOLUME 10.7 fL (7.4-10.4); MONOCYTES 5.6 % (2-11); NEUTROPHILS 74.4 % (40-80); RBC 4.49 10x6/uL (4.00-5.40)
[2016-10-30 05:49] LABS: ANION GAP 11.7 mmol/L (8-16); CARBON DIOXIDE 28.5 mmol/L (21.0-32.0); CREATININE - SERUM 1.3 mg/dL (0.6-1.3)
[2016-10-30 05:50] LABS: PLATELET COUNT 234 10x3/uL (130-400); WBC 7.5 10x3/uL (4.8-10.8)
[2016-10-30 05:54] LABS: POTASSIUM - SERUM 4.2 mmol/L (3.5-5.1)
[2016-10-30 07:50] VITALS: BP 118/71
--- NOTE | 2016-10-30 08:01 | NUR ---
AWAKE AND ALERT. ORIENTED X 3. NO C/O AT THIS TIME. LUNGS ARE CLEAR BILATERALLY BUT SLIGHTLY DIMINISHED. SKIN IS INTACT WITHOUT REDNESS BUT 2 PLUS EDEMA NOTED TO BILATERAL LOWER EXTREMETIES. PATIENT REPORTS THIS IMPROVED. WILL MONITOR. SL TO RIGHT HAND IS PATENT WITHOUT REDNESS AT INSERTION SITE. DENIES NEEDS.
--- NOTE | 2016-10-30 10:27 | NUR ---
ATE ALL OF BREAKFAST. DENIES NEEDS.
[2016-10-30] MEDS ORDERED: MIRALAX17 GM PO (11:20)
[2016-10-30 11:30] VITALS: BP 109/79
--- NOTE | 2016-10-30 12:21 | NUR ---
Patient Name: GAURAV RAYA Admission Status: ER Accout number: [id number] Admission Date: 10-29-2016 : 1965 Admission Diagnosis: Attending: BRENDA Current LOS: 1 Anticipated DC Date: Planned Disposition: Home or Self Care [facility] Discharge Planning Comments: CM met with patient to assess discharge planning needs. Patient lives at home with her children who are (9,11,18). She is independent and states her home is safe to return too. Her daughter Shilpa ([phone]) will be the one who is driving her home. Patient states that she uses a CPAP and has 5 steps to enter in her house & states she is steady on her feet. Patient is discharging today and denies any CM needs or HH set up. She Is being set up with [facility]. PCP: Tiffany Eubanks Pharmacy: [facility] [address] (daughter) [phone] Family Resource Management Professor: Tanesha Arias * Is the patient Alert and Oriented? Yes 0 * How many steps to enter\exit or inside your home? 5 0 * PCP ROSA 0 * Pharmacy [facility] [place] 0 * Preadmission Environment Home with Family 0 * ADLs Independent 0 * Equipment CPAP 0 * List name and contact numbers for known caregivers / representatives who currently or will assist patient after discharge: RANI PRIEST [phone] 0 * Community resources currently utilized None 0 * Additional services required to return to the preadmission environment? No 0 * Can the patient safely return to the preadmission environment? Yes 0 * Has this patient been hospitalized within the prior 30 days at any hospital? Yes 0 Grand Total: 0
--- NOTE | 2016-10-30 13:30 | NUR ---
DISCHARGED TO HOME WITH FAMILY AMBULATORY. DISCHARGE INSTRUCTIONS GIVEN BOTH VERBALLY AND WRITTEN. ALL QUESTIONS ANSWERED. PATIENT VERBALIZED UNDERSTANDING OF SAME. NEEDED MEDS ESCRIBED TO PHARMACY OF CHOICE.
[2016-10-31 10:19] LABS: ANA REFLEX - DIRECT Negative (Negative); HEPATITIS C ANTIBODY 0.2 (0.0-0.9)
[2016-11-01 14:25] LABS: MITOCHONDRIAL ANTIBODY 4.5 Units (0.0-20.0); SMOOTH MUSCLE ABS (ACTIN) 27 Units (0-19)
== END 2016-10-30 13:30 | disposition home or self-care (01) | DRG 388 ==
LOC: D.ER 01:28 → OBSVTIME 11:42 → D.MS 11:42
PROVIDERS: Emergency Medicine; Family Medicine; Internal Medicine Gastroenterology; ADMIT Family Medicine
DX: K56.0 Paralytic ileus (principal); I50.33 Acute on chronic diastolic (congestive) heart failure; N17.9 Acute kidney failure, unspecified; I11.0 Hypertensive heart disease with heart failure; Z95.810 Presence of automatic (implantable) cardiac defibrillator; E78.5 Hyperlipidemia, unspecified

== ENCOUNTER → 2016-11-07 08:07 | Outpatient (CLI) | payer MEDICAID ==
[~2016-11-07] VITALS: Ht 166.4 cm; Wt 87.8 kg
[~2016-11-07 08:07] MED LIST changes: +LIBRAX CAPSULE1 CAP PO; +MIRALAX17 GM PO
[2016-11-07 09:28] VITALS: BP 106/65; Ht 166.4 cm; Wt 87.8 kg
[2016-11-07 10:12] LABS: ALBUMIN 3.2 g/dL (3.4-5.0); ANION GAP 11.5 mmol/L (8-16); BILIRUBIN - TOTAL 2.58 mg/dL (0.2-1.3); CALCIUM 9.3 mg/dL (8.5-10.1); CARBON DIOXIDE 30.8 mmol/L (21.0-32.0); CREATININE - SERUM 1.2 mg/dL (0.6-1.3); POTASSIUM - SERUM 4.3 mmol/L (3.5-5.1); PROTEIN - SERUM 7.9 g/dL (6.4-8.2)
--- NOTE | 2016-11-07 11:29 | NUR ---
RECIEVED REPORT FROM KINA SANTOS WITH PATIENT ALERT AND ORIENTED. IV TO THE L/AC WITH DOBUTREX INFUSING AT 13.1 CC/HR AND BUMEX INFUSING AT 10 CC/HR. HR 102 101/77. 1200 CC URINE REMOVED FROM COLLECTION. WILL MONITOR
--- NOTE | 2016-11-07 11:54 | NUR ---
ANSWERED CALL TO ROOM WITH PATIENT UP TO BEDSIDE COMMODE. ASSIST PROVIED WITH 1400 CC CLEAR YELLOW URINE TO COLLECTION. VSS WITH CHEST PAIN DENIED WILL MONITOR
--- NOTE | 2016-11-07 12:32 | NUR ---
700 CC URINE EMPTIED WITH PATIENT VSS. NEEDS PROVIDED BUMEX CONTINUES AT 10 CC/HR AND DOBUTREX AT 13.1
--- NOTE | 2016-11-07 13:38 | NUR ---
PATIENT RESTING QUIELTY WITH EYES CLOSED VSS WITH NO DISTRESS NOTED. DOBUTREX CONTINUES TO INFUSE.
--- NOTE | 2016-11-07 14:03 | NUR ---
REPOSITIONED FOR COMFORT WITH VSS. PATINET DENIED PAIN OR NEEDS
--- NOTE | 2016-11-07 14:19 | NUR ---
1700 CC URINE EMPTIED FROM COLLECTION. PATIENT DENIED NEEDS
--- NOTE | 2016-11-07 15:05 | NUR ---
700 CC URINE TO COLLECTION WITH PATIENT CO OF SPASMS IN BACK AND REQUEST HOME MEDICATION OF ZANAFLEX. DR THOMAS NOTIFIED WITH ORDERS RECIEVED. 4 MG ZANAFLEX GIVEN PO X 1
--- NOTE | 2016-11-07 16:03 | NUR ---
PATIENT RESTING QUIETLY WITH EYES CLOSED NO DISTRESS NOTED. IV CONTINUES TO INFUSE
--- NOTE | 2016-11-07 16:48 | NUR ---
800 CC URINE EMPTIED FROM COLLECTION. PIV REMOVED WITH DRESSING APPLIED. PATIENT UP TO GET DRESSED FOR DISCHARGE HOME
--- NOTE | 2016-11-07 17:26 | NUR ---
VERBAL AND WRITTEN DISCHARGE GONE OVER WITH PATIENT. TRANSPORTED TO FRONT WAITING FOR DAUGHTER TO DRIVE HOME. NEEDS DENIED TOTAL OUTPUT OF 9650 DURING COURSE OF IV INFUSION. WITH DISCHARGE WEIGHT OF 179 LBS
== END | disposition home or self-care (01) ==
LOC: D.CATH 08:07
PROVIDERS: Internal Medicine Cardiovascular Disease
DX: I50.9 Heart failure, unspecified (principal); I42.9 Cardiomyopathy, unspecified

== ENCOUNTER → 2016-11-14 19:57 | Outpatient (CLI) | payer MEDICAID ==
[2016-11-07 09:28] VITALS: BMI 31.7
[2016-11-14 20:25] LABS: CALCIUM 9.8 mg/dL (8.5-10.1); CARBON DIOXIDE 28.8 mmol/L (21.0-32.0); CREATININE - SERUM 1.3 mg/dL (0.6-1.3); POTASSIUM - SERUM 4.8 mmol/L (3.5-5.1)
== END | disposition home or self-care (01) ==
LOC: D.LABREF 19:57
PROVIDERS: Nurse Practitioner
DX: I10 Essential (primary) hypertension (principal)

== ENCOUNTER 2016-11-16 13:14 | Emergency (ER) | payer MEDICAID ==
[2016-11-07 09:28] VITALS: BMI 31.7
[2016-11-16 14:16] LABS: BASOPHILS 0.3 % (0-2); EOSINOPHILS 0.5 % (0-7); HEMATOCRIT 38.6 % (36.0-48.0); HEMOGLOBIN 12.6 g/dL (12-16); IMMATURE GRANULOCYTES 0.5 % (0-5); LYMPHOCYTES 21.9 % (15-50); MCH 28.8 pg (26.0-34.0); MCHC 32.6 g/dL (31.0-37.0); MCV 88.1 fL (80.0-100.0); MONOCYTES 7.1 % (2-11); NEUTROPHILS 69.7 % (40-80); PLATELET COUNT 220 10x3/uL (130-400); RBC 4.38 10x6/uL (4.00-5.40); RDW 19.9 % (11.5-14.5); WBC 6.1 10x3/uL (4.8-10.8)
[2016-11-16 14:46] LABS: ALBUMIN 3.4 g/dL (3.4-5.0); ANION GAP 15.5 mmol/L (8-16); BILIRUBIN - TOTAL 2.88 mg/dL (0.2-1.3); CALCIUM 9.6 mg/dL (8.5-10.1); CARBON DIOXIDE 26.5 mmol/L (21.0-32.0); CREATININE - SERUM 1.1 mg/dL (0.6-1.3); PROTEIN - SERUM 7.7 g/dL (6.4-8.2)
[2016-11-16 14:48] LABS: DIGOXIN 0.67 ng/mL (0.90-2.00)
== END 2016-11-16 15:48 | disposition home or self-care (01) ==
LOC: D.ER 13:14
PROVIDERS: Emergency Medicine
DX: R60.9 Edema, unspecified (principal); R53.83 Other fatigue; I42.9 Cardiomyopathy, unspecified

== ENCOUNTER 2017-08-26 03:42 | Inpatient (IN) | payer MEDICAID ==
[~2017-08-26] VITALS: Ht 166.4 cm; Wt 81.5 kg
[2017-08-26 04:13] LABS: BASOPHILS 0.5 % (0-2); EOSINOPHILS 0.9 % (0-7); HEMATOCRIT 39.6 % (36.0-48.0); HEMOGLOBIN 13.4 g/dL (12-16); IMMATURE GRANULOCYTES 0.3 % (0-5); LYMPHOCYTES 30.6 % (15-50); MCH 32.7 pg (26.0-34.0); MCHC 33.8 g/dL (31.0-37.0); MCV 96.6 fL (80.0-100.0); MEAN PLATELET VOLUME 10.7 fL (7.4-10.4); MONOCYTES 6.9 % (2-11); NEUTROPHILS 60.8 % (40-80); PLATELET COUNT 210 10x3/uL (130-400); RDW 14.1 % (11.5-14.5); WBC 7.7 10x3/uL (4.8-10.8)
[2017-08-26 04:27] LABS: ALBUMIN 3.9 g/dL (3.4-5.0); ANION GAP 16.1 mmol/L (8-16); BILIRUBIN - TOTAL 0.92 mg/dL (0.2-1.3); CALCIUM 8.7 mg/dL (8.5-10.1); CARBON DIOXIDE 26.4 mmol/L (21.0-32.0); CREATININE - SERUM 1.7 mg/dL (0.6-1.3); POTASSIUM - SERUM 4.5 mmol/L (3.5-5.1)
[2017-08-26 04:44] LABS: TROPONIN-I 0.691 ng/mL (0.000-0.060)
[2017-08-26] MEDS ORDERED: BUMEX 1 MG TAB1 MG PO (06:03)
[2017-08-26] MEDS ORDERED: ENTRESTO 24 MG1 EACH PO (06:04)
[2017-08-26] MEDS ORDERED: COREG 3.1253.125 MG PO (06:05)
[2017-08-26 06:54] VITALS: Ht 166.4 cm; Wt 81.5 kg
[2017-08-26 07:57] VITALS: BP 94/37
[2017-08-26 11:23] VITALS: BP 107/62
[2017-08-26 15:36] VITALS: BP 125/66
[2017-08-26 21:12] VITALS: BP 109/69
[2017-08-27 01:18] VITALS: BP 112/64
[2017-08-27 05:50] VITALS: BP 107/62
[2017-08-27 06:15] LABS: BASOPHILS 0.5 % (0-2); EOSINOPHILS 0.6 % (0-7); HEMOGLOBIN 12.2 g/dL (12-16); IMMATURE GRANULOCYTES 0.2 % (0-5); LYMPHOCYTES 27.9 % (15-50); MCH 32.4 pg (26.0-34.0); MCHC 33.9 g/dL (31.0-37.0); MCV 95.5 fL (80.0-100.0); MEAN PLATELET VOLUME 11.3 fL (7.4-10.4); NEUTROPHILS 62.8 % (40-80); PLATELET COUNT 206 10x3/uL (130-400); RBC 3.77 10x6/uL (4.00-5.40); RDW 14.2 % (11.5-14.5); WBC 6.5 10x3/uL (4.8-10.8)
[2017-08-27 06:36] LABS: ALBUMIN 3.7 g/dL (3.4-5.0); ANION GAP 15.2 mmol/L (8-16); BILIRUBIN - TOTAL 1.07 mg/dL (0.2-1.3); CALCIUM 8.9 mg/dL (8.5-10.1); CARBON DIOXIDE 24.9 mmol/L (21.0-32.0); POTASSIUM - SERUM 4.1 mmol/L (3.5-5.1); PROTEIN - SERUM 7.5 g/dL (6.4-8.2)
[2017-08-27 06:42] LABS: CREATININE - SERUM 1.2 mg/dL (0.6-1.3)
[2017-08-27 07:40] VITALS: BP 102/57
[2017-08-27 10:44] VITALS: BP 105/61
[2017-08-27 14:57] VITALS: BP 100/68
[2017-08-27 19:00] VITALS: BP 111/75
[2017-08-28 04:00] VITALS: BP 104/69
[2017-08-28 05:55] LABS: BASOPHILS 0.1 % (0-2); EOSINOPHILS 0.1 % (0-7); HEMATOCRIT 37.4 % (36.0-48.0); HEMOGLOBIN 12.7 g/dL (12-16); IMMATURE GRANULOCYTES 0.1 % (0-5); LYMPHOCYTES 19.5 % (15-50); MCH 32.7 pg (26.0-34.0); MCV 96.4 fL (80.0-100.0); MEAN PLATELET VOLUME 11.8 fL (7.4-10.4); MONOCYTES 9.5 % (2-11); NEUTROPHILS 70.7 % (40-80); PLATELET COUNT 227 10x3/uL (130-400); RBC 3.88 10x6/uL (4.00-5.40); RDW 14.2 % (11.5-14.5); WBC 7.5 10x3/uL (4.8-10.8)
[2017-08-28 06:14] LABS: ALBUMIN 3.9 g/dL (3.4-5.0); BILIRUBIN - TOTAL 2.02 mg/dL (0.2-1.3); CALCIUM 9.1 mg/dL (8.5-10.1); CARBON DIOXIDE 25.6 mmol/L (21.0-32.0); CREATININE - SERUM 1.3 mg/dL (0.6-1.3)
[2017-08-28 06:18] LABS: ANION GAP 16.4 mmol/L (8-16)
[2017-08-28 08:04] VITALS: BP 108/72
== END 2017-08-28 12:39 | disposition home or self-care (01) | DRG 315 ==
LOC: D.ER 03:42 → D.EDHOLD 04:33 → D.M2 04:33
PROVIDERS: Emergency Medicine; Family Medicine
DX: I95.9 Hypotension, unspecified (principal); I42.9 Cardiomyopathy, unspecified; N17.9 Acute kidney failure, unspecified; I11.0 Hypertensive heart disease with heart failure; I50.9 Heart failure, unspecified; K21.9 Gastro-esophageal reflux disease without esophagitis; K59.00 Constipation, unspecified; I08.1 Rheumatic disorders of both mitral and tricuspid valves; Z95.0 Presence of cardiac pacemaker

== ENCOUNTER 2017-08-31 09:31 | Inpatient (IN) | payer MEDICAID ==
[~2017-08-31] VITALS: Ht 166.4 cm; Wt 79.5 kg
--- NOTE | ~2017-08-31 | HP ---
PATIENT: GAURAV HOWARD MEDICAL RECORD: [id number] ACCOUNT: [id number] LOCATION:[address] : 63 ADMISSION DATE: 09/01/17 HISTORY AND PHYSICAL EXAMINATION ADMITTING DIAGNOSES: 1. Congestive heart failure, chronic systolic dysfunction. 2. Nonischemic cardiomyopathy. HISTORY OF PRESENT ILLNESS: Ms. Howard presents with shortness of breath. Her PE protocol was negative for pulmonary embolus. She has a history of nonischemic cardiomyopathy. She has had troponin elevations in the past, but cardiac catheterization has been normal other than the severe cardiomyopathy, her ejection fraction is in the 15% to 20% range. Her shortness of breath and abdominal distension have been going on for the past week, she has ascites as well as pulmonary edema. REVIEW OF SYSTEMS: The patient reports easy bruising but reports no swollen glands. The patient reports no fever, no night sweats, no significant weight gain, no significant weight loss. No significant exercise tolerance. The patient reports no dry eyes, no irritation, no vision change. Patient reports no difficulty hearing and no ear pain. Patient reports no frequent nose bleeds or nose and sinus problems. Patient reports on arm pain on exertion. No shortness of breath while lying down. No history of heart murmur. Patient reports no cough, no wheezing or coughing up blood. Patient reports no abdominal pain, no vomiting. Normal appetite. No diarrhea and not vomiting blood. No nausea and no constipation. Patient reports no incontinence. No difficulty urinating. No hematuria. No increased frequency. Patient reports no muscle aches. No weakness, no arthralgias, no back pain. No swelling of the extremities. Patient reports no abnormal mole, no jaundice, no rashes. Reports no loss of consciousness. No weakness and no numbness. No seizures, dizziness, or headaches. The patient reports no depression, no sleep disturbance, feeling safe in a relationship and no alcohol abuse. Patient reports on fatigue. Reports no runny nose or sinus pressure. No itching, no hives, and no frequent sneezing. PHYSICAL EXAMINATION: GENERAL APPEARANCE: Well-nourished, well-developed, appears stated age. Level of distress, comfortable. PSYCHIATRIC: Mental status, alert, normal affect. Orientation, oriented to time, place and person. EYES: Lids and conjunctiva, noninjected. No discharge, no pallor. ENT: Lips, teeth, gums, normal dentition. Oropharynx, no cyanosis, no pallor. NECK: Carotid arteries, bilateral normal upstroke, no bruits, no thrills. JUGULAR VEINS: No jugular venous pressure or distention. CERVICAL LYMPH NODES: Nontender, nonenlarged. THYROID: Not enlarged. Nontender. No nodules. LUNGS: Respiratory effort, unlabored. CHEST: Normal curvature. No thoracic deformity. No chest wall tenderness. Percussion, resonant. Auscultation, clear. No wheezes, no rales, no rhonchi. CARDIOVASCULAR: Precordial exam, nondisplaced. No heaves or pericardial thrills. Rate and rhythm, regular. Heart sounds, normal S1, normal S2. No S3, no gallop, no rub. Systolic murmur, not heard. Diastolic murmur, not heard. EXTREMITIES: No cyanosis, no edema. Peripheral pulses, full and equal in all extremities, except as noted. No bruits appreciated. HISTORY AND PHYSICAL [id number] GAURAV HOWARD ABDOMEN: Soft, nondistended. Normal aorta. No bruit. Nontender. No masses. Liver, nontender, no hepatomegaly. Spleen, nontender, no splenomegaly. MUSCULOSKELETAL: No joint tenderness. No joint swelling. No erythema. NEUROLOGICAL: Normal gait, normal strength, normal tone. SKIN: Warm and dry. OVERALL IMPRESSION: Nonischemic cardiomyopathy. We will put her on dobutamine as well as IV Lasix and diurese her. This has worked in the past. Further care depends upon her response to diuresis. TRANSINT:[id number] Voice Confirmation ID: [id number] DOCUMENT ID: [id number] KARIS THOMAS MD at 1349 CC: [id number] DICTATION DATE: 08/31/17 1246 SUPERVISOR [employer]IGAR[employer] MAKING DEPARTMENT: 08/31/17 1322 ADM IN [id number] [place] [address]
--- NOTE | ~2017-08-31 | DS ---
PATIENT:GAURAV HOWARD :63 MEDICAL RECORD: [id number] DISCHARGE SUMMARY ADMISSION DATE: 09/01/17 DISCHARGE DATE: 09/02/17 DISCHARGE DIAGNOSES: 1. Nonischemic cardiomyopathy. 2. Congestive heart failure. HOSPITAL COURSE: Ms. Howard presents with decompensated congestive heart failure. She has a nonischemic cardiomyopathy, ejection fraction in the 15% to 20% range. She underwent diuresis with IV Lasix drip and dobutamine therapy. She had a good diuresis. Her symptomatology returned to baseline. Discharged home to follow up with [facility] in 1 month. She did have hypotension with the addition of the Coreg and the Coreg was discontinued. She was placed back on her digoxin that she was on previously. TRANSINT:[id number] Voice Confirmation ID: [id number] DOCUMENT ID: [id number] KARIS THOMAS MD at 0956 CC: [id number] DICTATION DATE: 09/02/17 1351 QUALITY PROJECT MANAGER: 09/03/17 0302 DIS IN 09/02/17 [id number] [place] [address]
[~2017-08-31 09:31] MED LIST changes: +ENTRESTO 24 MG1 EACH PO
[2017-08-31 10:17] LABS: BASOPHILS 0.2 % (0-2); EOSINOPHILS 0.5 % (0-7); HEMATOCRIT 37.7 % (36.0-48.0); HEMOGLOBIN 12.7 g/dL (12-16); IMMATURE GRANULOCYTES 0.6 % (0-5); LYMPHOCYTES 18.3 % (15-50); MCH 32.8 pg (26.0-34.0); MCHC 33.7 g/dL (31.0-37.0); MCV 97.4 fL (80.0-100.0); MEAN PLATELET VOLUME 11.7 fL (7.4-10.4); MONOCYTES 5.9 % (2-11); NEUTROPHILS 74.5 % (40-80); PLATELET COUNT 185 10x3/uL (130-400); RBC 3.87 10x6/uL (4.00-5.40); RDW 15.1 % (11.5-14.5); WBC 6.6 10x3/uL (4.8-10.8)
[2017-08-31 10:37] LABS: ALBUMIN 4.2 g/dL (3.4-5.0); ANION GAP 15.9 mmol/L (8-16); BILIRUBIN - TOTAL 1.61 mg/dL (0.2-1.3); CALCIUM 9.1 mg/dL (8.5-10.1); CARBON DIOXIDE 26.1 mmol/L (21.0-32.0); CREATININE - SERUM 1.7 mg/dL (0.6-1.3); PROTEIN - SERUM 8.4 g/dL (6.4-8.2)
[2017-08-31 10:57] LABS: TROPONIN-I 0.695 ng/mL (0.000-0.060)
[2017-08-31 11:02] LABS: APPEARANCE CLEAR (CLEAR); BILIRUBIN NEGATIVE (NEGATIVE); COLOR YELLOW (YELLOW); GLUCOSE 100 mg/dL (NEGATIVE); KETONE NEGATIVE (NEGATIVE); NITRITE NEGATIVE (NEGATIVE); PROTEIN NEGATIVE (NEGATIVE); SPECIFIC GRAVITY 1.015 (1.005-1.020)
[2017-08-31 11:03] LABS: BACTERIA FEW /hpf (NONE SEEN); EPITHELIAL CELLS 0-5 /hpf (0-5); HYALINE CAST 0-5 /lpf (NONE SEEN); MUCUS <1+ /lpf (NONE SEEN); RED CELLS - URINE RARE /hpf (0-5); UDS - AMPHET NEGATIVE QUAL (NEGATIVE); UDS - BARB NEGATIVE QUAL (NEGATIVE); UDS - BENZO NEGATIVE QUAL (NEGATIVE); UDS - COCAINE NEGATIVE QUAL (NEGATIVE); UDS - OPIATE NEGATIVE QUAL (NEGATIVE); UDS - PCP NEGATIVE QUAL (NEGATIVE); UDS - THC NEGATIVE QUAL (NEGATIVE)
[2017-09-01] VITALS (7 sets, daily range): BP systolic 88–121; BP diastolic 56–86; Ht 166.4 cm; Wt 79.5 kg
[2017-09-02 01:00] VITALS: BP 105/68
[2017-09-02 05:00] VITALS: BP 128/65
[2017-09-02 09:53] VITALS: BP 102/44
[2017-09-02 12:49] VITALS: BP 116/64
[2017-09-02 16:30] VITALS: BP 92/68
== END 2017-09-02 18:17 | disposition home or self-care (01) | DRG 292 ==
LOC: D.ER 09:31 → D.EDHOLD 13:04 → D.M2 13:04 → OBSVTIME 17:00 → D.M2 17:04
PROVIDERS: Family Medicine
DX: I50.23 Acute on chronic systolic (congestive) heart failure (principal); I42.9 Cardiomyopathy, unspecified; R18.8 Other ascites

== ENCOUNTER 2017-11-16 22:31 | Inpatient (IN) | payer MEDICAID ==
[~2017-11-16] VITALS: Ht 166.4 cm; Wt 73.4 kg
--- NOTE | ~2017-11-16 | HP ---
PATIENT: GAURAV HOWARD MEDICAL RECORD: [id number] ACCOUNT: [id number] LOCATION:[address] : 63 ADMISSION DATE: 11/17/17 HISTORY AND PHYSICAL EXAMINATION DIAGNOSES: 1. Nonischemic cardiomyopathy. 2. Congestive heart failure, chronic systolic dysfunction. 3. Abnormal ECG. 4. Shortness of breath, dyspnea on exertion. HISTORY OF PRESENT ILLNESS: Mrs. Howard presents with increasing shortness of breath, cough, dyspnea on exertion. Chest x-ray is compatible with mild congestive heart failure. She has a nonischemic cardiomyopathy, ejection fraction in the 10% to 15% range. She initially presented, she was hypertensive and tachycardic. She still is short of breath, but improved. REVIEW OF SYSTEMS: The patient reports easy bruising but reports no swollen glands. The patient reports no fever, no night sweats, no significant weight gain, no significant weight loss. No significant exercise tolerance. The patient reports no dry eyes, no irritation, no vision change. Patient reports no difficulty hearing and no ear pain. Patient reports no frequent nose bleeds or nose and sinus problems. Patient reports on arm pain on exertion. No shortness of breath while lying down. No history of heart murmur. Patient reports no cough, no wheezing or coughing up blood. Patient reports no abdominal pain, no vomiting. Normal appetite. No diarrhea and not vomiting blood. No nausea and no constipation. Patient reports no incontinence. No difficulty urinating. No hematuria. No increased frequency. Patient reports no muscle aches. No weakness, no arthralgias, no back pain. No swelling of the extremities. Patient reports no abnormal mole, no jaundice, no rashes. Reports no loss of consciousness. No weakness and no numbness. No seizures, dizziness, or headaches. The patient reports no depression, no sleep disturbance, feeling safe in a relationship and no alcohol abuse. Patient reports on fatigue. Reports no runny nose or sinus pressure. No itching, no hives, and no frequent sneezing. PHYSICAL EXAMINATION: GENERAL APPEARANCE: Well-nourished, well-developed, appears stated age. Level of distress, comfortable. PSYCHIATRIC: Mental status, alert, normal affect. Orientation, oriented to time, place and person. EYES: Lids and conjunctiva, noninjected. No discharge, no pallor. ENT: Lips, teeth, gums, normal dentition. Oropharynx, no cyanosis, no pallor. NECK: Carotid arteries, bilateral normal upstroke, no bruits, no thrills. JUGULAR VEINS: No jugular venous pressure or distention. CERVICAL LYMPH NODES: Nontender, nonenlarged. THYROID: Not enlarged. Nontender. No nodules. LUNGS: Respiratory effort, unlabored. CHEST: Normal curvature. No thoracic deformity. No chest wall tenderness. Percussion, resonant. Auscultation, clear. No wheezes, no rales, no rhonchi. CARDIOVASCULAR: Precordial exam, nondisplaced. No heaves or pericardial thrills. Rate and rhythm, regular. Heart sounds, normal S1, normal S2. No S3, no gallop, no rub. Systolic murmur, not heard. Diastolic murmur, not heard. EXTREMITIES: No cyanosis, no edema. Peripheral pulses, full and equal in all extremities, except as noted. No bruits appreciated. HISTORY AND PHYSICAL [id number] GAURAV HOWARD ABDOMEN: Soft, nondistended. Normal aorta. No bruit. Nontender. No masses. Liver, nontender, no hepatomegaly. Spleen, nontender, no splenomegaly. MUSCULOSKELETAL: No joint tenderness. No joint swelling. No erythema. NEUROLOGICAL: Normal gait, normal strength, normal tone. SKIN: Warm and dry. OVERALL IMPRESSION: Congestive heart failure, chronic systolic dysfunction from nonischemic cardiomyopathy. We will treat with IV Lasix. We will change her medications around. She is on digoxin, but she is not on Coreg or a beta aspen. We will add carvedilol to get better heart rate and blood pressure control. Further care depends upon the results with the diuresis and the medication changes. TRANSINT:[id number] Voice Confirmation ID: [id number] DOCUMENT ID: [id number] KARSI THOMAS MD at 1147 CC: [id number] DICTATION DATE: 11/17/17926 MANAGER PHYSICAL: 11/17/17 1057 ADM IN [facility] [address] [id number]
--- NOTE | ~2017-11-16 | DS ---
PATIENT:GAURAV HOWARD :63 MEDICAL RECORD: [id number] DISCHARGE SUMMARY ADMISSION DATE: 11/17/17 DISCHARGE DATE: DIAGNOSES: 1. Congestive heart failure, chronic systolic dysfunction. 2. Nonischemic cardiomyopathy. Ms. Howard presents with fluid overload, congestive heart failure symptomatology. Underwent IV diuresis, was discharged home with no change in her medications as she is already on Bumex at home. Follow up with [facility] in 1 month. TRANSINT:[id number] Voice Confirmation ID: [id number] DOCUMENT ID: [id number] KARIS THOMAS MD at 1741 CC: [id number] DICTATION DATE: 11/19/17 1149 BEREAVEMENT COUNSELOR: 11/19/17 2325 ADM IN [address] [address]
[2017-11-16 23:02] VITALS: BP 106/77
[2017-11-16 23:29] LABS: BASOPHILS 0.3 % (0-2); EOSINOPHILS 0.3 % (0-7); HEMATOCRIT 42.9 % (36.0-48.0); HEMOGLOBIN 14.3 g/dL (12-16); IMMATURE GRANULOCYTES 0.3 % (0-5); LYMPHOCYTES 22.8 % (15-50); MCH 30.6 pg (26.0-34.0); MCHC 33.3 g/dL (31.0-37.0); MCV 91.7 fL (80.0-100.0); MEAN PLATELET VOLUME 11.3 fL (7.4-10.4); MONOCYTES 6.8 % (2-11); NEUTROPHILS 69.5 % (40-80); PLATELET COUNT 173 10x3/uL (130-400); RBC 4.68 10x6/uL (4.00-5.40); RDW 16.3 % (11.5-14.5)
[2017-11-16 23:38] LABS: ALKALINE PHOSPHATASE 137 U/L (46-116); ALT (SGPT) 35 U/L (10-68); BILIRUBIN - TOTAL 1.89 mg/dL (0.2-1.3); CALC OSMOLALITY 276 mosm/kg (275-300); CALCIUM 9.8 mg/dL (8.5-10.1); CARBON DIOXIDE 28.2 mmol/L (21.0-32.0); CHLORIDE - SERUM 97 mmol/L (98-107); CREATININE - SERUM 1.7 mg/dL (0.6-1.3); POTASSIUM - SERUM 4.5 mmol/L (3.5-5.1); PROTEIN - SERUM 8.8 g/dL (6.4-8.2); SODIUM 136 mmol/L (136-145); UREA NITROGEN 24 mg/dL (7-18); eGFR NON AFRICAN AMERICAN 33 mL/min (90-120)
[2017-11-16 23:44] LABS: GLUCOSE 118 mg/dL (74-106)
[2017-11-16 23:54] LABS: AMYLASE - SERUM 130 U/L (25-115); CKMB 1.1 U/L (0.0-3.6); LIPASE 78 U/L (73-393); PRO BNP 6057 pg/mL (0-125)
[2017-11-16 23:55] LABS: TROPONIN-I 1.929 ng/mL (0.000-0.060)
[2017-11-17] VITALS (9 sets, daily range): BP systolic 97–132; BP diastolic 67–95; BMI 28.5
[2017-11-17] MEDS ORDERED: LANOXIN125 MCG PO (02:27)
[2017-11-17] MEDS ORDERED: PHENERGAN6.25 MG/5 PO (02:30)
[2017-11-17] MEDS ORDERED: TESSALON PERLE100 MG PO (02:32)
[2017-11-18 04:00] VITALS: BP 95/76
[2017-11-18 07:30] LABS: BASOPHILS 0.2 % (0-2); EOSINOPHILS 0.5 % (0-7); HEMATOCRIT 40.4 % (36.0-48.0); HEMOGLOBIN 13.5 g/dL (12-16); IMMATURE GRANULOCYTES 0.3 % (0-5); MCH 30.4 pg (26.0-34.0); MCHC 33.4 g/dL (31.0-37.0); MEAN PLATELET VOLUME 11.9 fL (7.4-10.4); MONOCYTES 10.8 % (2-11); NEUTROPHILS 66.2 % (40-80); PLATELET COUNT 156 10x3/uL (130-400); RBC 4.44 10x6/uL (4.00-5.40); RDW 16.3 % (11.5-14.5); WBC 5.9 10x3/uL (4.8-10.8)
[2017-11-18 07:52] LABS: ANION GAP 15.8 mmol/L (8-16); CALCIUM 9.6 mg/dL (8.5-10.1); CARBON DIOXIDE 24.9 mmol/L (21.0-32.0); CREATININE - SERUM 1.7 mg/dL (0.6-1.3); POTASSIUM - SERUM 4.7 mmol/L (3.5-5.1)
[2017-11-18 08:45] VITALS: BP 100/76
[2017-11-18 11:12] VITALS: BP 108/69
[2017-11-19] VITALS (7 sets, daily range): BP systolic 47–106; BP diastolic 21–78
[2017-11-19 21:54] LABS: ALBUMIN 3.5 g/dL (3.4-5.0); ANION GAP 22.9 mmol/L (8-16); BILIRUBIN - TOTAL 3.16 mg/dL (0.2-1.3); CALCIUM 9.8 mg/dL (8.5-10.1); CARBON DIOXIDE 20.4 mmol/L (21.0-32.0); PROTEIN - SERUM 7.9 g/dL (6.4-8.2)
[2017-11-19 22:00] LABS: CREATININE - SERUM 2.5 mg/dL (0.6-1.3)
[2017-11-19 22:02] LABS: POTASSIUM - SERUM 7.3 mmol/L (3.5-5.1)
[2017-11-19 22:38] LABS: CKMB 2.1 U/L (0.0-3.6); CREATINE KINASE 105 UL (21-215)
[2017-11-19 22:46] LABS: TROPONIN-I 2.398 ng/mL (0.000-0.060)
[2017-11-20] VITALS (52 sets, daily range): BP systolic 35–131; BP diastolic 9–100; BMI 26.8
[2017-11-20 00:07] LABS: ALBUMIN 3.3 g/dL (3.4-5.0); BILIRUBIN - TOTAL 3.54 mg/dL (0.2-1.3); CALCIUM 9.1 mg/dL (8.5-10.1); CREATININE - SERUM 2.4 mg/dL (0.6-1.3); PROTEIN - SERUM 7.4 g/dL (6.4-8.2)
[2017-11-20 00:09] LABS: ANION GAP 14.6 mmol/L (8-16); CARBON DIOXIDE 28.3 mmol/L (21.0-32.0); POTASSIUM - SERUM 4.9 mmol/L (3.5-5.1)
[2017-11-20 05:35] LABS: ALBUMIN 3.3 g/dL (3.4-5.0); ANION GAP 14.6 mmol/L (8-16); BILIRUBIN - TOTAL 3.85 mg/dL (0.2-1.3); CALCIUM 8.9 mg/dL (8.5-10.1); CARBON DIOXIDE 29.8 mmol/L (21.0-32.0); CREATININE - SERUM 2.6 mg/dL (0.6-1.3); POTASSIUM - SERUM 4.4 mmol/L (3.5-5.1); PROTEIN - SERUM 7.6 g/dL (6.4-8.2)
[2017-11-20 08:58] LABS: APPEARANCE CLOUDY (CLEAR); COLOR DY (YELLOW)
[2017-11-20 08:59] LABS: BILIRUBIN 2+ (NEGATIVE); GLUCOSE 100 mg/dL (NEGATIVE); KETONE NEGATIVE (NEGATIVE); NITRITE NEGATIVE (NEGATIVE); PROTEIN 2+ mg/dL (NEGATIVE); WHITE CELLS - URINE RARE /hpf (0-5)
[2017-11-20 09:01] LABS: EPITHELIAL CELLS 0-5 /hpf (0-5)
[2017-11-20 09:02] LABS: BACTERIA FEW /hpf (NONE SEEN)
[2017-11-20 09:03] LABS: AMORPHOUS SEDIMENT >1+ /lpf (NONE SEEN)
[2017-11-21] VITALS (62 sets, daily range): BP systolic 87–168; BP diastolic 46–100
[2017-11-21 04:43] LABS: BASOPHILS 0.1 % (0-2); EOSINOPHILS 0.3 % (0-7); HEMATOCRIT 42.1 % (36.0-48.0); HEMOGLOBIN 13.8 g/dL (12-16); IMMATURE GRANULOCYTES 0.5 % (0-5); LYMPHOCYTES 15.3 % (15-50); MCH 30.1 pg (26.0-34.0); MCHC 32.8 g/dL (31.0-37.0); MCV 91.9 fL (80.0-100.0); MEAN PLATELET VOLUME 11.7 fL (7.4-10.4); MONOCYTES 6.9 % (2-11); NEUTROPHILS 76.9 % (40-80); PLATELET COUNT 168 10x3/uL (130-400); RBC 4.58 10x6/uL (4.00-5.40); RDW 16.6 % (11.5-14.5); WBC 10.8 10x3/uL (4.8-10.8)
[2017-11-21 05:14] LABS: ALBUMIN 3.3 g/dL (3.4-5.0); ANION GAP 13.4 mmol/L (8-16); BILIRUBIN - TOTAL 3.14 mg/dL (0.2-1.3); CALCIUM 9.3 mg/dL (8.5-10.1); CARBON DIOXIDE 29.7 mmol/L (21.0-32.0); CREATININE - SERUM 2.8 mg/dL (0.6-1.3); POTASSIUM - SERUM 4.1 mmol/L (3.5-5.1); PROTEIN - SERUM 7.6 g/dL (6.4-8.2)
[2017-11-21 10:37] LABS: T4 THYROXIN - FREE 1.25 ng/dL (0.76-1.46); THYROID STIMULATING HORMONE 1.97 uIU/mL (0.36-3.74)
[2017-11-21 21:08] LABS: % SATURATION 6 % (15-55); IRON 26 ug/dl (35-150); TOTAL IRON BIND CAPACITY 393 ug/dl (260-445); UNSAT IRON BIND CAPACITY 367 ug/dl (150-375)
[2017-11-22] VITALS (26 sets, daily range): BP systolic 90–124; BP diastolic 44–86
[2017-11-22 06:34] LABS: BASOPHILS 0 % (0-2); EOSINOPHILS 0 % (0-7); HEMATOCRIT 39.2 % (36.0-48.0); HEMOGLOBIN 13.1 g/dL (12-16); IMMATURE GRANULOCYTES 0.3 % (0-5); LYMPHOCYTES 4.4 % (15-50); MCH 30.1 pg (26.0-34.0); MCHC 33.4 g/dL (31.0-37.0); MCV 90.1 fL (80.0-100.0); MEAN PLATELET VOLUME 11.8 fL (7.4-10.4); MONOCYTES 3.4 % (2-11); NEUTROPHILS 91.9 % (40-80); PLATELET COUNT 184 10x3/uL (130-400); RBC 4.35 10x6/uL (4.00-5.40); RDW 16.5 % (11.5-14.5); WBC 10.1 10x3/uL (4.8-10.8)
[2017-11-22 06:39] LABS: APTT 37.4 SECONDS (22.8-39.4); INR 2.01 (0.85-1.17); PROTIME 22.2 SECONDS (11.6-15.0)
[2017-11-22 06:54] LABS: ALBUMIN 2.6 g/dL (3.4-5.0); ANION GAP 8.5 mmol/L (8-16); BILIRUBIN - TOTAL 2.52 mg/dL (0.2-1.3); CALCIUM 8.9 mg/dL (8.5-10.1); CARBON DIOXIDE 32.1 mmol/L (21.0-32.0); CREATININE - SERUM 1.8 mg/dL (0.6-1.3); POTASSIUM - SERUM 3.6 mmol/L (3.5-5.1); PROTEIN - SERUM 6.7 g/dL (6.4-8.2)
[2017-11-22 07:03] LABS: CHOL - HDL RATIO 5.4 ratio (2.3-4.1); LDL-HDL RATIO 3.9 ratio (1.5-3.5); PRE-ALBUMIN 9.7 mg/dL (18.0-35.7)
[2017-11-23] VITALS (8 sets, daily range): BP systolic 98–110; BP diastolic 66–76
[2017-11-23 09:42] LABS: BASOPHILS 0 % (0-2); EOSINOPHILS 0 % (0-7); HEMATOCRIT 39.6 % (36.0-48.0); HEMOGLOBIN 13.2 g/dL (12-16); IMMATURE GRANULOCYTES 0.3 % (0-5); LYMPHOCYTES 4.2 % (15-50); MCHC 33.3 g/dL (31.0-37.0); MEAN PLATELET VOLUME 11.7 fL (7.4-10.4); MONOCYTES 4.1 % (2-11); NEUTROPHILS 91.4 % (40-80); PLATELET COUNT 202 10x3/uL (130-400); RDW 16.5 % (11.5-14.5); WBC 11.4 10x3/uL (4.8-10.8)
[2017-11-23 09:54] LABS: INR 1.47 (0.85-1.17); PROTIME 17.3 SECONDS (11.6-15.0)
[2017-11-23 10:05] LABS: ANION GAP 13.2 mmol/L (8-16); BILIRUBIN - TOTAL 2.28 mg/dL (0.2-1.3); CALCIUM 8.9 mg/dL (8.5-10.1); CARBON DIOXIDE 26.7 mmol/L (21.0-32.0); CREATININE - SERUM 1.6 mg/dL (0.6-1.3); POTASSIUM - SERUM 3.9 mmol/L (3.5-5.1); PROTEIN - SERUM 7.2 g/dL (6.4-8.2)
[2017-11-23 10:17] LABS: ANA REFLEX - DIRECT Negative (Negative)
[2017-11-23 11:17] LABS: C-PEPTIDE 8.1 ng/mL (1.1-4.4)
[2017-11-23 11:17] LABS: ALPHA FETOPROTEIN -(TUMOR MRK) 6.7 ng/mL (0.0-8.3)
[2017-11-23 13:15] LABS: HEPATITIS C ANTIBODY 0.3 (0.0-0.9)
[2017-11-23 15:21] LABS: EBV - EARLY ANTIGEN AB IGG <9.0 U/mL (0.0-8.9); EBV - NUCLEAR ANTIGEN AB IGG >600.0 U/mL (0.0-17.9); EBV VIRAL CAPSID AB IGG >600.0 U/mL (0.0-17.9); EBV VIRAL CAPSID AB IGM <36.0 U/mL (0.0-35.9)
[2017-11-23 17:12] LABS: HELICOBACTER PYLORI IGM AB 13.1 units (0.0-8.9)
[2017-11-24 04:00] VITALS: BP 96/67
[2017-11-24 05:35] LABS: BASOPHILS 0 % (0-2); EOSINOPHILS 0 % (0-7); HEMATOCRIT 40.3 % (36.0-48.0); HEMOGLOBIN 13.3 g/dL (12-16); IMMATURE GRANULOCYTES 0.3 % (0-5); LYMPHOCYTES 5.1 % (15-50); MCH 29.8 pg (26.0-34.0); MCV 90.2 fL (80.0-100.0); MEAN PLATELET VOLUME 11.6 fL (7.4-10.4); MONOCYTES 10.8 % (2-11); NEUTROPHILS 83.8 % (40-80); PLATELET COUNT 204 10x3/uL (130-400); RBC 4.47 10x6/uL (4.00-5.40); RDW 16.7 % (11.5-14.5); WBC 11.9 10x3/uL (4.8-10.8)
[2017-11-24 06:00] LABS: ALBUMIN 3.1 g/dL (3.4-5.0); BILIRUBIN - TOTAL 1.93 mg/dL (0.2-1.3); CALCIUM 9.4 mg/dL (8.5-10.1); CARBON DIOXIDE 27.1 mmol/L (21.0-32.0); PROTEIN - SERUM 7.5 g/dL (6.4-8.2)
[2017-11-24 06:02] LABS: ANION GAP 14.4 mmol/L (8-16); CREATININE - SERUM 2.2 mg/dL (0.6-1.3); POTASSIUM - SERUM 4.5 mmol/L (3.5-5.1)
[2017-11-24 07:45] VITALS: BP 97/70
[2017-11-24 11:42] VITALS: BP 132/80
[2017-11-24 15:46] VITALS: BP 113/89
[2017-11-24 21:40] VITALS: BP 97/74
[2017-11-25 03:06] LABS: INSULIN - TOTAL 52 uU/mL (())
[2017-11-25 05:42] LABS: BASOPHILS 0.1 % (0-2); EOSINOPHILS 0 % (0-7); HEMATOCRIT 40.9 % (36.0-48.0); HEMOGLOBIN 13.8 g/dL (12-16); IMMATURE GRANULOCYTES 0.3 % (0-5); LYMPHOCYTES 14.6 % (15-50); MCH 29.7 pg (26.0-34.0); MCHC 33.7 g/dL (31.0-37.0); MEAN PLATELET VOLUME 11.7 fL (7.4-10.4); MONOCYTES 4.7 % (2-11); NEUTROPHILS 80.3 % (40-80); PLATELET COUNT 198 10x3/uL (130-400); RBC 4.64 10x6/uL (4.00-5.40); RDW 16.6 % (11.5-14.5); WBC 9.5 10x3/uL (4.8-10.8)
[2017-11-25 05:43] LABS: MCV 88.1 fL (80.0-100.0)
[2017-11-25 06:14] VITALS: BP 115/78
[2017-11-25 06:33] VITALS: BP 101/82
[2017-11-25 07:40] VITALS: BP 118/89
[2017-11-25 10:07] LABS: SMOOTH MUSCLE ABS (ACTIN) 21 Units (0-19)
[2017-11-25 11:19] VITALS: BP 135/91
[2017-11-25 15:35] VITALS: BP 114/80
[2017-11-25 20:21] VITALS: BP 114/88
[2017-11-26 02:14] VITALS: BP 120/76
[2017-11-26 05:15] VITALS: BP 103/87
[2017-11-26 06:13] LABS: BASOPHILS 0 % (0-2); EOSINOPHILS 0 % (0-7); HEMATOCRIT 40.2 % (36.0-48.0); HEMOGLOBIN 13.7 g/dL (12-16); IMMATURE GRANULOCYTES 0.4 % (0-5); LYMPHOCYTES 8.6 % (15-50); MCH 29.9 pg (26.0-34.0); MCHC 34.1 g/dL (31.0-37.0); MCV 87.8 fL (80.0-100.0); MEAN PLATELET VOLUME 11.9 fL (7.4-10.4); MONOCYTES 9.4 % (2-11); NEUTROPHILS 81.6 % (40-80); PLATELET COUNT 208 10x3/uL (130-400); RBC 4.58 10x6/uL (4.00-5.40); RDW 16.7 % (11.5-14.5); WBC 10.2 10x3/uL (4.8-10.8)
[2017-11-26 07:26] LABS: ANION GAP 18.1 mmol/L (8-16); CREATININE - SERUM 3.2 mg/dL (0.6-1.3); POTASSIUM - SERUM 5.1 mmol/L (3.5-5.1)
[2017-11-26 08:34] VITALS: BP 127/93
[2017-11-26 11:53] LABS: ALBUMIN 3.5 g/dL (3.4-5.0); BILIRUBIN - DIRECT 1.32 mg/dL (0.00-0.30); BILIRUBIN - INDIRECT 0.63 mg/dL (0.00-1.00); BILIRUBIN - TOTAL 1.95 mg/dL (0.2-1.3)
[2017-11-26 12:24] VITALS: BP 110/85
[2017-11-26 16:34] VITALS: BP 113/91
[2017-11-27 00:02] VITALS: BP 123/85
[2017-11-27 06:02] VITALS: BP 131/95
[2017-11-27 07:41] LABS: ANION GAP 17.2 mmol/L (8-16); CALCIUM 9.4 mg/dL (8.5-10.1); CREATININE - SERUM 2.9 mg/dL (0.6-1.3)
[2017-11-27 07:42] LABS: POTASSIUM - SERUM 4.2 mmol/L (3.5-5.1)
[2017-11-27 08:22] LABS: BASOPHILS 0.1 % (0-2); EOSINOPHILS 0.1 % (0-7); HEMATOCRIT 40.2 % (36.0-48.0); HEMOGLOBIN 13.8 g/dL (12-16); IMMATURE GRANULOCYTES 0.9 % (0-5); LYMPHOCYTES 13.3 % (15-50); MCH 29.9 pg (26.0-34.0); MCHC 34.3 g/dL (31.0-37.0); MEAN PLATELET VOLUME 11.6 fL (7.4-10.4); MONOCYTES 3.6 % (2-11); PLATELET COUNT 222 10x3/uL (130-400); RBC 4.62 10x6/uL (4.00-5.40); RDW 16.9 % (11.5-14.5); WBC 10.4 10x3/uL (4.8-10.8)
[2017-11-27 08:47] VITALS: BP 112/81
[2017-11-27 09:55] VITALS: Ht 166.4 cm; Wt 73.4 kg
[2017-11-27 12:16] LABS: ALBUMIN 3.3 g/dL (3.4-5.0); BILIRUBIN - DIRECT 1.28 mg/dL (0.00-0.30); BILIRUBIN - INDIRECT 0.8 mg/dL (0.00-1.00); BILIRUBIN - TOTAL 2.08 mg/dL (0.2-1.3); PROTEIN - SERUM 7.8 g/dL (6.4-8.2)
[2017-11-27 12:38] VITALS: BP 120/91
[2017-11-27 16:27] VITALS: BP 101/75
[2017-11-27 22:07] VITALS: BP 90/55
[2017-11-28 01:57] VITALS: BP 104/82
[2017-11-28 04:45] LABS: BASOPHILS 0 % (0-2); EOSINOPHILS 0 % (0-7); HEMATOCRIT 38.7 % (36.0-48.0); HEMOGLOBIN 13.2 g/dL (12-16); LYMPHOCYTES 14.6 % (15-50); MCH 29.4 pg (26.0-34.0); MCHC 34.1 g/dL (31.0-37.0); MCV 86.2 fL (80.0-100.0); MEAN PLATELET VOLUME 11.2 fL (7.4-10.4); NEUTROPHILS 81.4 % (40-80); PLATELET COUNT 235 10x3/uL (130-400); RBC 4.49 10x6/uL (4.00-5.40); RDW 16.6 % (11.5-14.5); WBC 12.2 10x3/uL (4.8-10.8)
[2017-11-28 04:59] LABS: ALBUMIN 3.2 g/dL (3.4-5.0); BILIRUBIN - TOTAL 2.31 mg/dL (0.2-1.3); CALCIUM 8.7 mg/dL (8.5-10.1); CREATININE - SERUM 2.2 mg/dL (0.6-1.3); PROTEIN - SERUM 7.3 g/dL (6.4-8.2)
[2017-11-28 05:04] LABS: ANION GAP 10.2 mmol/L (8-16); CARBON DIOXIDE 36.3 mmol/L (21.0-32.0); POTASSIUM - SERUM 3.5 mmol/L (3.5-5.1)
[2017-11-28 05:16] LABS: INR 1.47 (0.85-1.17); PROTIME 17.3 SECONDS (11.6-15.0)
[2017-11-28 05:30] VITALS: BP 114/69
[2017-11-28 05:43] LABS: APPEARANCE HAZY (CLEAR); BILIRUBIN NEGATIVE (NEGATIVE); COLOR YELLOW (YELLOW); GLUCOSE NEGATIVE (NEGATIVE); KETONE NEGATIVE (NEGATIVE); NITRITE NEGATIVE (NEGATIVE); PROTEIN NEGATIVE (NEGATIVE); UROBILINOGEN NORMAL (NORMAL)
[2017-11-28 05:46] LABS: BACTERIA MANY /hpf (NONE SEEN); EPITHELIAL CELLS 0-5 /hpf (0-5); RED CELLS - URINE 0-5 /hpf (0-5)
[2017-11-28 05:47] LABS: ERYTHROCYTE SEDIMENTATION RATE 2 mm/hr (0-30)
[2017-11-28 07:54] VITALS: BP 114/74
[2017-11-28 11:29] VITALS: BP 128/77
[2017-11-28 15:34] VITALS: BP 123/63
[2017-11-28 17:16] LABS: CREATININE - URINE 15.1 mg/dL (30-125); PROTEIN - URINE 7.1 mg/dL (0.0-11.9)
[2017-11-28 19:44] VITALS: BP 116/66
[2017-11-29 01:25] VITALS: BP 113/69
[2017-11-29 05:58] VITALS: BP 110/38
[2017-11-29 07:07] LABS: BASOPHILS 0 % (0-2); EOSINOPHILS 0 % (0-7); HEMATOCRIT 43.3 % (36.0-48.0); HEMOGLOBIN 14.8 g/dL (12-16); IMMATURE GRANULOCYTES 0.9 % (0-5); LYMPHOCYTES 12.1 % (15-50); MCH 30.1 pg (26.0-34.0); MCHC 34.2 g/dL (31.0-37.0); MEAN PLATELET VOLUME 11.3 fL (7.4-10.4); MONOCYTES 2.6 % (2-11); NEUTROPHILS 84.4 % (40-80); PLATELET COUNT 276 10x3/uL (130-400); RBC 4.92 10x6/uL (4.00-5.40); RDW 16.8 % (11.5-14.5); WBC 11.8 10x3/uL (4.8-10.8)
[2017-11-29 07:39] LABS: ALBUMIN 3.6 g/dL (3.4-5.0); ANION GAP 6.9 mmol/L (8-16); BILIRUBIN - TOTAL 2.53 mg/dL (0.2-1.3); CALCIUM 8.8 mg/dL (8.5-10.1); POTASSIUM - SERUM 3.2 mmol/L (3.5-5.1); PROTEIN - SERUM 8.4 g/dL (6.4-8.2)
[2017-11-29 07:47] LABS: CREATININE - SERUM 1.4 mg/dL (0.6-1.3)
[2017-11-29 07:51] LABS: CARBON DIOXIDE 43.3 mmol/L (21.0-32.0)
[2017-11-29 09:31] VITALS: BP 122/85
[2017-11-29 13:41] VITALS: BP 100/61
[2017-11-29 16:15] LABS: SPE - A/G RATIO 0.9 (0.7-1.7); SPE - ALBUMIN 3.2 g/dL (2.9-4.4); SPE - ALPHA-1 GLOBULIN 0.3 g/dL (0.0-0.4); SPE - ALPHA-2 GLOBULIN 0.6 g/dL (0.4-1.0); SPE - BETA GLOBULIN 1.1 g/dL (0.7-1.3); SPE - GAMMA GLOBULIN 1.7 g/dL (0.4-1.8); SPE - M-SPIKE Not Observed g/dL (Not Observed); SPE - TOTAL PROTEIN 6.8 g/dL (6.0-8.5)
[2017-11-29 17:08] VITALS: BP 103/70
[2017-11-29 21:09] VITALS: BP 122/75
[2017-11-30 00:37] VITALS: BP 111/70
[2017-11-30 05:20] LABS: BASOPHILS 0.1 % (0-2); EOSINOPHILS 0 % (0-7); HEMATOCRIT 42.1 % (36.0-48.0); HEMOGLOBIN 14.1 g/dL (12-16); IMMATURE GRANULOCYTES 0.8 % (0-5); LYMPHOCYTES 13.7 % (15-50); MCH 29.4 pg (26.0-34.0); MCHC 33.5 g/dL (31.0-37.0); MCV 87.7 fL (80.0-100.0); MEAN PLATELET VOLUME 11.1 fL (7.4-10.4); MONOCYTES 3.6 % (2-11); NEUTROPHILS 81.8 % (40-80); PLATELET COUNT 258 10x3/uL (130-400); RDW 16.7 % (11.5-14.5); WBC 13.4 10x3/uL (4.8-10.8)
[2017-11-30 05:59] LABS: ALBUMIN 3.1 g/dL (3.4-5.0); BILIRUBIN - TOTAL 2.17 mg/dL (0.2-1.3); CREATININE - SERUM 1.1 mg/dL (0.6-1.3); PROTEIN - SERUM 7.2 g/dL (6.4-8.2)
[2017-11-30 06:10] LABS: ANION GAP 6.3 mmol/L (8-16); CARBON DIOXIDE 42.7 mmol/L (21.0-32.0)
[2017-11-30 06:18] VITALS: BP 107/71
[2017-11-30 08:30] VITALS: BP 123/73
[2017-11-30 12:01] VITALS: BP 121/73
[2017-11-30 16:14] VITALS: BP 105/80
[2017-11-30 20:00] VITALS: BP 111/78
[2017-12-01] VITALS: BP 98/72
[2017-12-01 04:00] VITALS: BP 97/62
[2017-12-01 04:55] LABS: BASOPHILS 0.1 % (0-2); EOSINOPHILS 0.1 % (0-7); HEMATOCRIT 42.5 % (36.0-48.0); HEMOGLOBIN 14.2 g/dL (12-16); IMMATURE GRANULOCYTES 0.8 % (0-5); LYMPHOCYTES 8.6 % (15-50); MCH 29.5 pg (26.0-34.0); MCHC 33.4 g/dL (31.0-37.0); MCV 88.2 fL (80.0-100.0); MEAN PLATELET VOLUME 10.8 fL (7.4-10.4); MONOCYTES 2.6 % (2-11); NEUTROPHILS 87.8 % (40-80); PLATELET COUNT 238 10x3/uL (130-400); RBC 4.82 10x6/uL (4.00-5.40); RDW 16.8 % (11.5-14.5); WBC 13.7 10x3/uL (4.8-10.8)
[2017-12-01 05:22] LABS: ALBUMIN 3.2 g/dL (3.4-5.0); ANION GAP 3.2 mmol/L (8-16); BILIRUBIN - TOTAL 2.17 mg/dL (0.2-1.3); CALCIUM 9.3 mg/dL (8.5-10.1); CREATININE - SERUM 1.2 mg/dL (0.6-1.3); POTASSIUM - SERUM 3.4 mmol/L (3.5-5.1); PROTEIN - SERUM 7.2 g/dL (6.4-8.2)
[2017-12-01 05:25] LABS: CARBON DIOXIDE 42.2 mmol/L (21.0-32.0)
[2017-12-01 07:59] VITALS: BP 106/75
[2017-12-01 11:06] VITALS: BP 111/72
[2017-12-01] MEDS ORDERED: SALINE NASAL SP45 ML NASAL (12:40)
[2017-12-01] MEDS ORDERED: COLACE100 MG PO (12:40)
[2017-12-01] MEDS ORDERED: AMITIZA8 MCG PO (12:41)
[2017-12-01] MEDS ORDERED: COREG6.25 MG PO (12:41)
[2017-12-01] MEDS ORDERED: MIRALAX17 GM PO (12:43)
[2017-12-01] MEDS ORDERED: CARAFATE1 G PO (12:43)
[2017-12-01] MEDS ORDERED: LEVAQUIN500 MG PO (12:47)
[2017-12-01] MEDS ORDERED: STERAPRED 5MG 65 M1 PO (12:47)
[2017-12-01 15:06] VITALS: BP 109/70
[2017-12-01] MEDS ORDERED: MEPERIDINE HCL50 MG PO (16:29)
== END 2017-12-01 17:50 | disposition home or self-care (01) | DRG 291 ==
LOC: D.ER 22:31 → OBSVTIME 11-17 00:41 → D.EDHOLD 11-17 00:41 → D.M2 11-17 00:41 → D.ICU 11-17 15:01 → D.M2 11-17 15:01 → D.ICU 11-19 20:26 → D.CVICU 11-21 19:30 → D.M2 11-23 02:34
PROVIDERS: Family Medicine; Internal Medicine Gastroenterology; Internal Medicine Nephrology
PROC: 05H533Z Insertion of Infusion Device into Right Subclavian Vein, Percutaneous Approach (ICD-10-PCS; principal; 2017-11-19)
PROC: 03HY32Z Insertion of Monitoring Device into Upper Artery, Percutaneous Approach (ICD-10-PCS; 2017-11-20)
DX: I11.0 Hypertensive heart disease with heart failure (principal); R57.0 Cardiogenic shock; K72.00 Acute and subacute hepatic failure without coma; N17.9 Acute kidney failure, unspecified; E87.2 Acidosis; I50.23 Acute on chronic systolic (congestive) heart failure; I42.8 Other cardiomyopathies; I27.20 Pulmonary hypertension, unspecified; I34.0 Nonrheumatic mitral (valve) insufficiency; I07.1 Rheumatic tricuspid insufficiency; I95.9 Hypotension, unspecified; E16.2 Hypoglycemia, unspecified; Z95.0 Presence of cardiac pacemaker; R11.2 Nausea with vomiting, unspecified; R10.11 Right upper quadrant pain; R80.9 Proteinuria, unspecified; E87.5 Hyperkalemia; D50.9 Iron deficiency anemia, unspecified; R60.0 Localized edema; R68.81 Early satiety; K59.00 Constipation, unspecified

== ENCOUNTER 2018-01-22 16:45 | Inpatient (IN) | payer MEDICARE ==
[2018-01-22] VITALS (10 sets, daily range): BP systolic 102–129; BP diastolic 70–91
[~2018-01-22] VITALS: Ht 166.4 cm; Wt 68.5 kg
[~2018-01-22 16:45] MED LIST changes: +AMITIZA8 MCG PO; +CARAFATE1 G PO; +COLACE100 MG PO; +COREG6.25 MG PO; +MEPERIDINE HCL50 MG PO; +PHENERGAN6.25 MG/5 PO; +SALINE NASAL SP45 ML NASAL; +STERAPRED 5MG 65 M1 PO; +TESSALON PERLE100 MG PO
[2018-01-22 17:21] LABS: BASOPHILS 0.1 % (0-2); EOSINOPHILS 0.7 % (0-7); HEMATOCRIT 38.6 % (36.0-48.0); IMMATURE GRANULOCYTES 0.3 % (0-5); LYMPHOCYTES 16.4 % (15-50); MCH 30.1 pg (26.0-34.0); MCHC 33.7 g/dL (31.0-37.0); MCV 89.4 fL (80.0-100.0); MONOCYTES 11.3 % (2-11); NEUTROPHILS 71.2 % (40-80); RBC 4.32 10x6/uL (4.00-5.40); RDW 21.7 % (11.5-14.5); WBC 6.9 10x3/uL (4.8-10.8)
[2018-01-22 17:35] LABS: PLATELET COUNT 164 10x3/uL (130-400)
[2018-01-22 18:41] LABS: ALBUMIN 3.8 g/dL (3.4-5.0); ALKALINE PHOSPHATASE 130 U/L (46-116); ALT (SGPT) 22 U/L (10-68); BILIRUBIN - TOTAL 1.45 mg/dL (0.2-1.3); CALC OSMOLALITY 280 mosm/kg (275-300); CALCIUM 9.5 mg/dL (8.5-10.1); CARBON DIOXIDE 24.2 mmol/L (21.0-32.0); CHLORIDE - SERUM 100 mmol/L (98-107); CREATININE - SERUM 2.7 mg/dL (0.6-1.3); POTASSIUM - SERUM 5.3 mmol/L (3.5-5.1); PROTEIN - SERUM 8.2 g/dL (6.4-8.2); SODIUM 137 mmol/L (136-145); UREA NITROGEN 35 mg/dL (7-18); eGFR NON AFRICAN AMERICAN 19 mL/min (90-120)
[2018-01-22 18:44] LABS: GLUCOSE 87 mg/dL (74-106); THYROID STIMULATING HORMONE 1.97 uIU/mL (0.36-3.74)
[2018-01-22 18:56] LABS: CKMB 1.5 U/L (0.0-3.6); CREATINE KINASE 100 UL (21-215); PRO BNP 9076 pg/mL (0-125)
[2018-01-22 19:02] LABS: TROPONIN-I 1.474 ng/mL (0.000-0.060)
[2018-01-23 02:23] VITALS: BP 121/85; BMI 24.6
[2018-01-23 03:46] VITALS: BP 105/75
[2018-01-23 04:34] LABS: BASOPHILS 0.1 % (0-2); EOSINOPHILS 0 % (0-7); HEMATOCRIT 37.7 % (36.0-48.0); HEMOGLOBIN 12.7 g/dL (12-16); IMMATURE GRANULOCYTES 0.4 % (0-5); MCH 30.2 pg (26.0-34.0); MCHC 33.7 g/dL (31.0-37.0); MCV 89.8 fL (80.0-100.0); MEAN PLATELET VOLUME 11.4 fL (7.4-10.4); MONOCYTES 8.8 % (2-11); NEUTROPHILS 79.7 % (40-80); RDW 21.3 % (11.5-14.5); WBC 8.1 10x3/uL (4.8-10.8)
[2018-01-23 04:37] LABS: PLATELET COUNT 257 10x3/uL (130-400)
[2018-01-23 05:03] LABS: CALCIUM 9.3 mg/dL (8.5-10.1); CARBON DIOXIDE 22.6 mmol/L (21.0-32.0); CREATININE - SERUM 2.6 mg/dL (0.6-1.3); POTASSIUM - SERUM 5.6 mmol/L (3.5-5.1)
[2018-01-23 05:14] LABS: TROPONIN-I 1.422 ng/mL (0.000-0.060)
[2018-01-23 08:28] VITALS: BP 116/82
[2018-01-23 11:10] VITALS: BP 142/87
[2018-01-23 12:42] VITALS: Ht 166.4 cm; Wt 68.5 kg
[2018-01-23 15:53] VITALS: BP 118/80
[2018-01-23 17:08] LABS: CKMB 1.4 U/L (0.0-3.6); CREATINE KINASE 78 UL (21-215)
[2018-01-23 17:15] LABS: TROPONIN-I 1.259 ng/mL (0.000-0.060)
[2018-01-23 20:00] VITALS: BP 108/74
[2018-01-24] VITALS (7 sets, daily range): BP systolic 95–126; BP diastolic 67–88
[2018-01-24 05:59] LABS: BASOPHILS 0.2 % (0-2); EOSINOPHILS 0.5 % (0-7); HEMATOCRIT 35.5 % (36.0-48.0); HEMOGLOBIN 11.8 g/dL (12-16); IMMATURE GRANULOCYTES 0.5 % (0-5); LYMPHOCYTES 16.7 % (15-50); MCH 29.9 pg (26.0-34.0); MCHC 33.2 g/dL (31.0-37.0); MCV 89.9 fL (80.0-100.0); MEAN PLATELET VOLUME 10.9 fL (7.4-10.4); MONOCYTES 12.2 % (2-11); NEUTROPHILS 69.9 % (40-80); PLATELET COUNT 253 10x3/uL (130-400); RBC 3.95 10x6/uL (4.00-5.40); RDW 21.2 % (11.5-14.5); WBC 6.2 10x3/uL (4.8-10.8)
[2018-01-24 06:23] LABS: ALBUMIN 3.4 g/dL (3.4-5.0); BILIRUBIN - TOTAL 1.8 mg/dL (0.2-1.3); CALCIUM 9.1 mg/dL (8.5-10.1); CARBON DIOXIDE 25.6 mmol/L (21.0-32.0); PROTEIN - SERUM 7.4 g/dL (6.4-8.2)
[2018-01-24 06:24] LABS: ANION GAP 15.5 mmol/L (8-16); CREATININE - SERUM 1.7 mg/dL (0.6-1.3); POTASSIUM - SERUM 4.1 mmol/L (3.5-5.1)
[2018-01-25 04:00] VITALS: BP 136/82
[2018-01-25 06:08] LABS: HEMATOCRIT 35.9 % (36.0-48.0); LYMPHOCYTES 22.7 % (15-50); MCH 30.4 pg (26.0-34.0); MCHC 33.4 g/dL (31.0-37.0); MCV 90.9 fL (80.0-100.0); MEAN PLATELET VOLUME 10.9 fL (7.4-10.4); NEUTROPHILS 65.5 % (40-80); PLATELET COUNT 211 10x3/uL (130-400); RBC 3.95 10x6/uL (4.00-5.40); RDW 21.8 % (11.5-14.5); WBC 5.2 10x3/uL (4.8-10.8)
[2018-01-25 06:27] LABS: ALBUMIN 3.4 g/dL (3.4-5.0); ANION GAP 14.8 mmol/L (8-16); BILIRUBIN - TOTAL 1.7 mg/dL (0.2-1.3); CALCIUM 8.6 mg/dL (8.5-10.1); CARBON DIOXIDE 27.5 mmol/L (21.0-32.0); CREATININE - SERUM 1.4 mg/dL (0.6-1.3); POTASSIUM - SERUM 3.3 mmol/L (3.5-5.1); PROTEIN - SERUM 6.9 g/dL (6.4-8.2)
[2018-01-25 08:34] VITALS: BP 101/55
[2018-01-25] MEDS ORDERED: BUMEX 1 MG TAB1 MG PO (10:57)
[2018-01-25 13:01] VITALS: BP 104/78
== END 2018-01-25 14:15 | disposition home health service (06) | DRG 682 ==
LOC: D.ER 16:45 → D.EDHOLD 22:46 → D.MS 22:46
PROVIDERS: Emergency Medicine; Family Medicine
DX: N17.9 Acute kidney failure, unspecified (principal); I50.43 Acute on chronic combined systolic (congestive) and diastolic (congestive) heart failure; I13.0 Hypertensive heart and chronic kidney disease with heart failure and stage 1 through stage 4 chronic kidney disease, or unspecified chronic kidney disease; I42.0 Dilated cardiomyopathy; Z95.810 Presence of automatic (implantable) cardiac defibrillator; Z91.11 Patient's noncompliance with dietary regimen; E87.5 Hyperkalemia; N18.3 Chronic kidney disease, stage 3 (moderate)

== ENCOUNTER 2018-02-10 18:15 | Inpatient (IN) | payer MEDICARE ==
[~2018-02-10] VITALS: Ht 166.4 cm; Wt 67.5 kg
[2018-02-10] MEDS ORDERED: COREG6.25 MG PO (18:22)
[2018-02-10 19:41] LABS: BASOPHILS 0.3 % (0-2); EOSINOPHILS 0.6 % (0-7); HEMATOCRIT 42.3 % (36.0-48.0); HEMOGLOBIN 14.2 g/dL (12-16); IMMATURE GRANULOCYTES 0.7 % (0-5); LYMPHOCYTES 16.5 % (15-50); MCHC 33.6 g/dL (31.0-37.0); MCV 89.4 fL (80.0-100.0); MEAN PLATELET VOLUME 10.6 fL (7.4-10.4); MONOCYTES 8.7 % (2-11); NEUTROPHILS 73.2 % (40-80); RBC 4.73 10x6/uL (4.00-5.40)
[2018-02-10 19:47] LABS: PLATELET COUNT 278 10x3/uL (130-400)
[2018-02-10 19:58] LABS: ALBUMIN 3.6 g/dL (3.4-5.0); ALKALINE PHOSPHATASE 132 U/L (46-116); ALT (SGPT) 22 U/L (10-68); BILIRUBIN - TOTAL 2.14 mg/dL (0.2-1.3); CALC OSMOLALITY 270 mosm/kg (275-300); CALCIUM 9.3 mg/dL (8.5-10.1); CARBON DIOXIDE 34.9 mmol/L (21.0-32.0); CHLORIDE - SERUM 92 mmol/L (98-107); CREATININE - SERUM 1.4 mg/dL (0.6-1.3); POTASSIUM - SERUM 3.5 mmol/L (3.5-5.1); SODIUM 135 mmol/L (136-145); UREA NITROGEN 14 mg/dL (7-18); eGFR NON AFRICAN AMERICAN 42 mL/min (90-120)
[2018-02-10 20:03] LABS: GLUCOSE 101 mg/dL (74-106)
[2018-02-10 20:13] LABS: CKMB 0.5 U/L (0.0-3.6); CREATINE KINASE 69 UL (21-215); PRO BNP 2858 pg/mL (0-125)
[2018-02-10 20:22] LABS: C-REACTIVE PROTEIN < 0.2 mg/dL (0.0-0.9); TROPONIN-I 1.402 ng/mL (0.000-0.060)
[2018-02-10 21:19] VITALS: BP 112/54
[2018-02-11 01:18] VITALS: BP 103/69; BMI 25.9
[2018-02-11 05:08] LABS: BASOPHILS 0.2 % (0-2); EOSINOPHILS 0 % (0-7); HEMOGLOBIN 12.9 g/dL (12-16); IMMATURE GRANULOCYTES 0.5 % (0-5); LYMPHOCYTES 7.1 % (15-50); MCH 29.3 pg (26.0-34.0); MCHC 33.1 g/dL (31.0-37.0); MCV 88.6 fL (80.0-100.0); MEAN PLATELET VOLUME 10.8 fL (7.4-10.4); NEUTROPHILS 89.2 % (40-80); PLATELET COUNT 269 10x3/uL (130-400); RDW 19.1 % (11.5-14.5); WBC 5.8 10x3/uL (4.8-10.8)
[2018-02-11 05:23] LABS: ANION GAP 16.7 mmol/L (8-16); CARBON DIOXIDE 29.1 mmol/L (21.0-32.0); CREATININE - SERUM 1.6 mg/dL (0.6-1.3); POTASSIUM - SERUM 3.8 mmol/L (3.5-5.1)
[2018-02-11 06:12] VITALS: BP 103/69
[2018-02-11 07:55] VITALS: BP 113/75
[2018-02-11 11:55] VITALS: BP 98/60
[2018-02-11 14:42] VITALS: BMI 24.4
[2018-02-11 15:35] VITALS: Ht 166.4 cm; Wt 67.5 kg
[2018-02-11 16:29] VITALS: BP 110/75
[2018-02-11 20:00] VITALS: BP 99/59
[2018-02-12 04:00] VITALS: BP 98/67
[2018-02-12 05:34] LABS: BASOPHILS 0 % (0-2); EOSINOPHILS 0 % (0-7); HEMATOCRIT 39.1 % (36.0-48.0); HEMOGLOBIN 13.4 g/dL (12-16); IMMATURE GRANULOCYTES 0.4 % (0-5); LYMPHOCYTES 10.7 % (15-50); MCH 29.9 pg (26.0-34.0); MCHC 34.3 g/dL (31.0-37.0); MCV 87.3 fL (80.0-100.0); MEAN PLATELET VOLUME 10.7 fL (7.4-10.4); NEUTROPHILS 80.9 % (40-80); PLATELET COUNT 267 10x3/uL (130-400); RBC 4.48 10x6/uL (4.00-5.40); RDW 18.9 % (11.5-14.5)
[2018-02-12 05:52] LABS: ANION GAP 12.2 mmol/L (8-16); CALCIUM 8.7 mg/dL (8.5-10.1); CARBON DIOXIDE 31.5 mmol/L (21.0-32.0); CREATININE - SERUM 1.3 mg/dL (0.6-1.3); POTASSIUM - SERUM 3.7 mmol/L (3.5-5.1); WBC 11.3 10x3/uL (4.8-10.8)
[2018-02-12 08:03] VITALS: BP 106/83
[2018-02-12 11:58] VITALS: BP 97/61
[2018-02-12 16:13] VITALS: BP 93/63
[2018-02-12 19:17] LABS: APPEARANCE CLEAR (CLEAR); BILIRUBIN NEGATIVE (NEGATIVE); COLOR YELLOW (YELLOW); GLUCOSE NEGATIVE (NEGATIVE); KETONE NEGATIVE (NEGATIVE); NITRITE NEGATIVE (NEGATIVE); PROTEIN NEGATIVE (NEGATIVE); UROBILINOGEN NORMAL (NORMAL)
[2018-02-12 23:42] VITALS: BP 98/65
[2018-02-13 06:34] VITALS: BP 114/81
[2018-02-13 06:39] LABS: BASOPHILS 0 % (0-2); EOSINOPHILS 0 % (0-7); HEMATOCRIT 40.2 % (36.0-48.0); HEMOGLOBIN 13.7 g/dL (12-16); IMMATURE GRANULOCYTES 0.3 % (0-5); LYMPHOCYTES 5.4 % (15-50); MCH 29.8 pg (26.0-34.0); MCHC 34.1 g/dL (31.0-37.0); MCV 87.6 fL (80.0-100.0); MEAN PLATELET VOLUME 10.5 fL (7.4-10.4); MONOCYTES 6.6 % (2-11); NEUTROPHILS 87.7 % (40-80); PLATELET COUNT 275 10x3/uL (130-400); RBC 4.59 10x6/uL (4.00-5.40); WBC 9.4 10x3/uL (4.8-10.8)
[2018-02-13 06:44] LABS: ANION GAP 11.1 mmol/L (8-16); CALCIUM 8.8 mg/dL (8.5-10.1); CARBON DIOXIDE 30.9 mmol/L (21.0-32.0)
[2018-02-13 07:48] VITALS: BP 105/64
[2018-02-13] MEDS ORDERED: POTASSIUM CHLO20 MEQ PO (11:14)
[2018-02-13] MEDS ORDERED: BUMEX2 MG PO (11:15)
[2018-02-13 11:39] VITALS: BP 104/61
== END 2018-02-13 13:55 | disposition home or self-care (01) | DRG 291 ==
LOC: D.ER 18:15 → D.M2 23:45 → OBSVTIME 23:45 → D.M2 02-12 16:47
PROVIDERS: Family Medicine; Internal Medicine Nephrology
DX: I11.0 Hypertensive heart disease with heart failure (principal); J18.9 Pneumonia, unspecified organism; N17.9 Acute kidney failure, unspecified; I50.23 Acute on chronic systolic (congestive) heart failure; E11.9 Type 2 diabetes mellitus without complications; I42.9 Cardiomyopathy, unspecified; J45.998 Other asthma

== ENCOUNTER → 2018-03-08 12:27 | Outpatient (CLI) | payer MEDICARE ==
[2018-02-11 15:35] VITALS: BMI 24.4
[~2018-03-08 12:27] MED LIST changes: +BUMEX2 MG PO; +POTASSIUM CHLO20 MEQ PO
== END | disposition home or self-care (01) ==
LOC: D.RAD 12:27
DX: T17.928A Food in respiratory tract, part unspecified causing other injury, initial encounter (principal); X58.XXXA Exposure to other specified factors, initial encounter